=== PATIENT | female | born 1965 | race Caucasian/White ===

== ENCOUNTER → 2016-11-11 | Outpatient (CLI) | payer BC ==
[2016-11-11 16:43] LABS: Basophils % (A) 1 %; CH 28.9; CHCM 32.6; Eosinophils # (A) 0.3 k/uL (0-0.7); Eosinophils % (A) 3 %; HCT 41.9 % (34.0-46.0); HDW 2.26; HGB 13.2 gm/dL (11.4-16.0); Luc # (Auto) 0.27; Luc % (Auto) 3; Lymphocytes # (A) 3.4 k/uL (1.0-4.8); Lymphocytes % (A) 37 %; MCH 28.1 pg (25.0-35.0); MCHC 31.5 g/dL (31.0-37.0); MCV 89.1 fL (80.0-100.0); Mean Platelet Volume 6.8; Monocytes # (A) 0.7 k/uL (0-1.0); Monocytes % (A) 8 %; Neutrophils # (A) 4.5 k/uL (1.3-7.7); Neutrophils % (A) 49 %; RDW 12.7 % (11.5-15.5); WBC 9.2 k/uL (3.8-10.6); WBC (Perox) 9.39
[2016-11-11 16:45] LABS: Appearance,Urine Clear (Clear); Bacteria,Urine Few /hpf; Bilirubin,Urine Negative (Negative); Glucose,Urine (UA) Negative (Negative); Ketones,Urine Negative (Negative); Leukocyte Esterase,Urine Negative (Negative); Mucus,Urine Rare /hpf; Nitrite,Urine Negative (Negative); PH, Urine 5.5 (5.0-8.0); Particle Count 1041; Protein,Urine Negative (Negative); RBC,Urine 12 /hpf (0-5); Specific Gravity,Urine 1.017 (1.001-1.035); Squamous Epithelial Cell,Urine <1 /hpf (0-4); UA Billing (MACRO vs. MICRO) MICRO; Urobilinogen,Urine <2.0 mg/dL (<2.0); WBC,Urine <1 /hpf (0-5)
[2016-11-11 16:52] LABS: ALT 40 U/L (9-52); AST 23 U/L (14-36); Alkaline Phosphatase 73 U/L (38-126); Anion Gap 11 mmol/L; Blood Urea Nitrogen 18 mg/dL (7-17); Calcium 9.4 mg/dL (8.4-10.2); Carbon Dioxide 28 mmol/L (22-30); Chloride 102 mmol/L (98-107); Glucose 95 mg/dL (74-99); Non-African American GFR(MDRD) >60 (>60 ml/min/1.73 sqM); Potassium 4.4 mmol/L (3.5-5.1); Sodium 141 mmol/L (137-145); Total Bilirubin 0.4 mg/dL (0.2-1.3); Total Protein 7.8 g/dL (6.3-8.2)
[2016-11-11 16:54] LABS: Partial Thromboplastin Time 28.3 sec (22.0-30.0); Prothrombin Time 9.8 sec (9.0-12.0)
== END | disposition home or self-care (01) ==
LOC: LABPAT 15:44
PROVIDERS: ATTEND Orthopaedic Surgery
DX: Z01.812 Encounter for preprocedural laboratory examination (principal)
CPT/HCPCS: 80053; 81001; 85025; 85610; 85730; 87070

== ENCOUNTER 2016-11-29 06:33 | Inpatient (IN) | payer BC ==
[2016-11-16 12:22] VITALS: BMI 40.5
[~2016-11-29 06:33] MED LIST: ACETAMINOPHEN TAB 500 MG TAB PO ONE; LIDOCAINE 1% 20 ML VIAL (10MG/ML) FOR IV START INTRADERMA PRN; MELOXICAM 7.5 MG TAB PO ONE; MIDAZOLAM 2 MG/2 ML VIAL IV PRN; ONDANSETRON 4 MG/2 ML VIAL IVP ONE; SCOPOLAMINE 1.5MG/72HR PATCH TRANSDERM ONE; TRANEXAMIC ACID 1,000 MG in SODIUM CHLORIDE 0.9% 100 ML IVPB ONE; ceFAZolin 2 GM in SODIUM CHLORIDE 0.9% 100 ML IVPB ONE; fentaNYL (PF) 50 MCG/ML 2 ML AMP IV PRN; fentaNYL (PF) 50 MCG/ML 20 ML VIAL IVP PRN
[2016-11-29 06:51] VITALS: RESP 16
[2016-11-29] MEDS: LACTATED RINGERS 1,000 ML IV SCH ×7 (06:55→23:26)
[2016-11-29] MEDS ORDERED: LIDOCAINE 1% 20 ML VIAL (10MG/ML) FOR IV START INTRADERMA ONE (06:56)
[2016-11-29] MEDS: DEXAMETHASONE SOD PHOSPHATE 10 MG/ML 1 ML VIAL IV ONE ×2 (06:56→12:15)
[2016-11-29] MEDS ORDERED: fentaNYL (PF) 50 MCG/ML 2 ML AMP IV ONE (07:59)
[2016-11-29] MEDS ORDERED: ROPIVACAINE 1,100 MG, SODIUM CHLORIDE 0.9% 330 ML MISCELLANE PRN ×2 (08:02)
--- NOTE | 2016-11-29 08:04 | P.ONQ ---
Anesthesiology Proc Note - PNB - Peripheral Nerve Block Performed Right Adductor Canal Infusion Time Out Performed: Yes Procedure Start Time: :25 Procedure Stop Time: :40 Indication: Acute Post-Operative Pain, Analgesia, Requested by physician Sedation Type: Sedate with meaningful contact maintained Preparation: Sterile Dressing Position: Supine Catheter: Indwelling Needle Types: On-Q Needle Size: 100mm (4") Needle Gauge: 18 Technique: Ultrasound Injectate: 0.5% Ropivacaine (see comment for volume) Blood Aspirated: No Pain Paresthesia on Injection Noted: No Resistance on Injection: Normal Events: Uneventful and Well Tolerated
[2016-11-29] MEDS ORDERED: MIDAZOLAM 2 MG/2 ML VIAL ONE (08:12)
[2016-11-29] MEDS ORDERED: PROPOFOL 10 MG/ML 20 ML VIAL IV ONE (08:12)
[2016-11-29] MEDS ORDERED: fentaNYL (PF) 50 MCG/ML 2 ML AMP ONE (08:12)
[2016-11-29] MEDS: ROPIVACAINE 246.25 MG, EPINEPHrine 0.5 MG, KETOROLAC 30 MG, cloNIDine HCL/PF 80 MCG, WA... MISCELLANE ONE ×10 (08:45→09:45)
[2016-11-29] MEDS ORDERED: LACTATED RINGERS 1,000 ML IV ONE (08:55)
--- NOTE | 2016-11-29 10:14 | P.OP ---
Date of Procedure: 11/29/16 Procedure(s) Performed: PREOPERATIVE DIAGNOSIS: Right knee severe osteoarthritis with genu varum POSTOPERATIVE DIAGNOSIS: Right knee severe osteoarthritis with genu varum OPERATION: Right knee cemented total replacement arthroplasty. ANESTHESIA: Spinal ESTIMATED BLOOD LOSS: 100 ml. DIABETOLOGIST: Nena Ortiz PA-C (assistance with: patient positioning, retraction, exposure, hemostasis, leg positioning, implantation, irrigation, closure, dressing) COMPLICATIONS: None apparent. COMPONENTS IMPLANTED: Persona system from [employer] INDICATIONS: Mrs. Henry is a 51-year-old female with a history of bilateral knee osteoarthritis. The patient's right knee is end-stage, and conservative management has failed. The operation of knee replacement has been discussed at length in the office, as well as potential risks and complications. These are inclusive of, but not limited to: bleeding, infection, scarring, discomfort, blood vessel and nerve damage, need for further surgery, failure to relieve symptoms, persistence, recurrence, or worsening of problems, loosening, dislocation, wear, blood clot, pulmonary embolism, , gait dysfunction, stiffness, and other risks as discussed in the office. The patient elects to proceed and the consent form has been signed. PROCEDURE: The patient was taken to the operating room and positioned on the operating room table in the supine position. Anesthesia was initiated. Care was taken to make sure that all pressure points were adequately padded. The operative right lower extremity was prepped and draped in the usual aseptic fashion using ChloraPrep. Ioban drape was used for the case and the patient received intravenous antibiotics within one hour of the incision. A pneumotourniquet and leg faria were used for the case. The limb was exsanguinated with an Esmarch bandage and the tourniquet was inflated to 350 mmHg. Time-out was called confirming the patient's identity, side, procedure and administration of antibiotics. The incision was then created midline directly over the knee, carried down through skin and into the subcutaneous tissues and down to fascia. Full thickness subcutaneous medial flap was developed. Medial parapatellar arthrotomy was performed and the interior of the knee was inspected. There was end-stage osteoarthritis of the knee with a mild to moderate genu varum type deformity. The fat pad was excised and proximal medial release on the tibia was completed using meticulous dissection and a curved osteotome. The anterior cruciate ligament was taken down. Note was made of significant attrition of the anterior and significant degenerative appearance of the posterior cruciate ligaments. The exposure was excellent. The knee was flexed 90 degrees and the patella was everted. A spot was chosen on the femur approximately 1 cm anterior to the posterior cruciate ligament insertion and an intramedullary hole was created within the femur. The intramedullary guide was then set to 5 degrees of valgus. The distal cutting block was attached and pinned into position. An appropriate amount of distal femoral resection was set. The oscillating saw was then used to make the distal femoral cut. This cut was confirmed to be flat with the flat end of an osteotome. The retractors were placed around the tibia and the tibial surface was addressed. The angle and depth of resection was adjusted using an extramedullary cutting guide. The guide had a built-in 3 degree posterior slope cut. Once the cutting guide was adjusted appropriately and in line with the axis of the tibia and confirmed to be in good position in relation to the second metatarsal and transmalleolar axis, the tibial cut was then created with protection of the posterior neurovascular structures and the collateral ligaments. The tibial cut surface was removed and sized. Femoral sizing was then accomplished using anterior referencing. Care was taken to analyze the posterior condyles for signs of deficiency or severe wear, and adjustments to the guide were made, as appropriate. 3 degree external rotation pins were placed. The cutting jig for the femur was applied to these pins. The planned cuts were further analyzed prior to performing them with the oscillating saw. No femoral notching was produced. Bone fragments were removed and the cut surfaces were finished, as necessary, with a reciprocating saw. Spacer block technique was then used to confirm that the flexion and extension gaps were equal. Soft tissue releases and adjustment of the tibial and/or femoral cuts were made, as necessary, until the gaps were equal. This included release of the posterior cruciate ligament, which was tight in this patient and , if left unreleased, would have resulted in poor kinematics and possibly early loosening. The femur was then further finished for a posterior cruciate ligament substituting component. Patellar resurfacing was performed using a reamer. The size of the required patellar component was estimated and the patellar surface was then reamed down to a residual thickness which would recreate the aniak thickness with the component. The placement of the patellar component was influenced by the degree of patellar subluxation, if any, noted on the preoperative x-rays. Prior to placing trial components, anesthetic solution consisting of ropivicaine with epinephrine, ketorolac, and clonidine was injected carefully and methodically in a grid pattern using aspiration technique into the soft tissue around the knee circumferentially, starting with the deeper tissues first and progressing to fascia, and then finally the skin/subcutaneous tissue. Particular care was taken when injecting the posterior capsule. The trial components were inserted. The tibial tray was allowed to self center and the patella was noted to track very well. The position of the tibial component was marked and the tibia was then finished for a stemmed tibial component. Cement was mixed on the back table and applied to the final components. Trial components were removed and the cut surfaces of the bone were pulse lavaged thoroughly and dried. Cement was then applied to the tibial surface and pressurized into the surface using finger pressurization technique. The tibial component was then applied and excess cement was removed after it was impacted securely and noted to be flush with the cut surface. In similar fashion, the cement was applied to the cut femoral surface, pressurized in using finger pressurization and the component was impacted into place. Excess cement was removed. The polyethylene spacer was then implanted and locked into position. The patellar component was then applied in similar technique and a patellar clamp was used to hold the patella in place as the cement hardened. Once the cement had fully hardened, the knee was reinspected. Any other cement extrusion was removed and final kinematic testing showed range of motion from 0 to 130 degrees with excellent stability, both medially and laterally and appropriate alignment of the leg. Patellar tracking was excellent. The knee was then thoroughly pulse lavaged with normal saline. The tourniquet was deflated and hemostasis was obtained with electrocautery and IV tranexamic acid, 1 g given at the start of the operation and 1 g at the start of closure. Closure was with #2 Ethibond in the fascia/capsule and supplemented with #2 Quill, 2-0 Vicryl suture was used for the subcutaneous tissues and 3-0 Quill for the skin. Dermabond/Steri-Strips were then applied. A lightly compressive dressing was applied using Webril and an Chris wrap. The patient was then transferred to stretcher and taken to the recovery room in stable condition. Sponge and needle counts were correct.
[2016-11-29] MEDS ORDERED: TEMAZEPAM 15 MG CAP PO PRN (10:24)
[2016-11-29] MEDS ORDERED: BISACODYL 10 MG SUPP RECTAL PRN (10:24)
[2016-11-29] MEDS ORDERED: NALOXONE 0.4 MG/ML 1 ML VIAL IV PRN (10:24)
[2016-11-29] MEDS ORDERED: HYDROcodone/APAP 5-325MG 1 EACH TAB PO PRN (10:24)
[2016-11-29] MEDS ORDERED: MAGNESIUM HYDROXIDE 2,400 MG/10 ML CUP PO PRN (10:24)
[2016-11-29] MEDS ORDERED: HYDROmorphone 1 MG/ML 1 ML SYRINGE IVP PRN ×3 (10:24)
[2016-11-29] MEDS ORDERED: ONDANSETRON 4 MG/2 ML VIAL IVP PRN (10:24)
[2016-11-29] MEDS ORDERED: NA PHOS,M-B/NA PHOS,DI-BA 133 ML ENEMA RECTAL PRN (10:24)
[2016-11-29] MEDS ORDERED: ACETAMINOPHEN TAB 325 MG TAB PO PRN (10:24)
--- NOTE | 2016-11-29 11:08 | XR ---
EXAMINATION TYPE: XR knee limited RT DATE OF EXAM: 11/29/2016 10:45 AM COMPARISON: NONE HISTORY: Post op FINDINGS: 2 views submitted. There is a prosthetic knee in near anatomic alignment. There is soft tissue beth a and emphysema. IMPRESSION: 1. Postoperative change. Appears in near-anatomic alignment
--- NOTE | 2016-11-29 14:05 | P.CONS ---
History of Present Illness - Reason for Consult Consult date: 11/29/16 Medical management Requesting physician: Rios Jordan - Chief Complaint Right knee osteoarthritis - History of Present Illness This is a 51-year-old female with no significant past medical history other than severe os arthritis of the right knee that failed outpatient management that was admitted to the hospital for elective total right knee arthroplasty. Patient is postoperative day #0. She tolerated the surgery well. She is awake and alert and does not have any specific concerns or complaints. Her pain is well-controlled. I was asked to see her for medical management. Estimated blood loss 100 mL. Review of Systems Review of system: 14 points review of systems were obtained and were negative except to what were mentioned in the HPI. Past Medical History Past Medical History: GERD/Reflux, Osteoarthritis (OA) Additional Past Medical History / Comment(s): HX OF HEMORROIDS, HX OF POLYPS History of Any Multi-Drug Resistant Organisms: None Reported Past Surgical History: Appendectomy, Section, Hysterectomy, Orthopedic Surgery, Tonsillectomy Additional Past Surgical History / Comment(s): MULT KNEE SCOPE, CARPAL TUNNEL STEPHANIE, LASIK. BILAT BUNIONS REMOVED FROM LITTLE TOES. COLONOSCOPY/EGD Past Anesthesia/Blood Transfusion Reactions: Motion Sickness Past Psychological History: No Psychological Hx Reported Smoking Status: Never smoker Past Alcohol Use History: Occasional Past Drug Use History: None Reported - Past Family History Mother Family Medical History: Deep Vein Thrombosis (DVT) Brother(s) Family Medical History: Blood Disorder Additional Family Medical History / Comment(s): HEMOPHELIA Medications and Allergies Home Medications Medication Instructions Recorded Confirmed Type Ibuprofen [Motrin] 800 mg PO Q8H PRN 09/08/16 11/29/16 History Omeprazole 20 mg PO DAILY 09/08/16 11/29/16 History Allergies Allergy/AdvReac Type Severity Reaction Status Date / Time morphine AdvReac Nausea & Verified 11/29/16 06:47 Vomiting Physical Exam Vitals: Vital Signs Temp Pulse Resp BP Pulse Ox 11/29/16 11:25 71 16 147/71 93 L 11/29/16 11:05 77 16 148/71 93 L 11/29/16 10:50 78 16 143/70 94 L 11/29/16 10:35 82 16 144/71 94 L 11/29/16 10:20 97.2 F L 84 16 133/63 96 11/29/16 06:40 97.8 F 82 16 198/85 96 Intake and Output 11/28/16 11/29/16 11/29/16 22:59 06:59 14:59 Intake Total 600 900 Output Total 700 Balance 600 200 Intake: IV 600 900 Output: Urine 600 Estimated Blood Loss 100 Other: Weight 117.48 kg Patient Weight 11/30/16 06:59 Weight 117.48 kg General: The patient is awake and alert, in no distress Eye: there is normal conjunctiva bilaterally. Neck: The neck is supple, there is no JVD. Cardiovascular: Normal S1-S2, no S3-S4, no murmurs. Respiratory: Lungs clear to auscultation bilaterally Gastrointestinal: Abdomen is soft, nontender Musculoskeletal: There is no pedal edema. Neurological:. Speech is normal. Skin: Skin is warm and dry Assessment and Plan Plan: 1. Postoperative day #1 status post total right knee arthroplasty 2. DVT prophylaxis with Coumadin per orthopedic protocol 3. Physical debility: Awaiting PT/OT evaluation 4. GERD Today, I reviewed her medication list and lab work results. Continue current regimen. Thank you very much for the consultation. I will continue to follow up on the patient closely.
[2016-11-29] MEDS ORDERED: WARFARIN 5 MG TAB PO ONE (18:00)
[2016-11-29] MEDS: ceFAZolin 2 GM in SODIUM CHLORIDE 0.9% 100 ML IVPB SCH ×2 (18:20→23:25)
[2016-11-29] MEDS: HYDROcodone/APAP 5-325MG 1 EACH TAB PO PRN (19:47)
[2016-11-29] MEDS: hydrOXYzine PAMOATE 25 MG CAP PO PRN (19:48)
[2016-11-29] MEDS ORDERED: SENNOSIDES-DOCUSATE SODIUM 1 EACH TAB PO SCH (21:00)
[2016-11-30] MEDS: HYDROcodone/APAP 5-325MG 1 EACH TAB PO PRN ×3 (01:35→13:30)
[2016-11-30] MEDS: hydrOXYzine PAMOATE 25 MG CAP PO PRN ×3 (01:35→13:31)
[2016-11-30 08:43] LABS: Basophils # (A) 0.1 k/uL (0-0.2); Basophils % (A) 0 %; CH 29.3; CHCM 32.4; Eosinophils # (A) 0.1 k/uL (0-0.7); Eosinophils % (A) 1 %; HCT 34.2 % (34.0-46.0); HDW 2.25; HGB 10.7 gm/dL (11.4-16.0); Luc % (Auto) 2; Lymphocytes # (A) 3.3 k/uL (1.0-4.8); Lymphocytes % (A) 30 %; MCH 28.3 pg (25.0-35.0); MCHC 31.2 g/dL (31.0-37.0); MCV 90.8 fL (80.0-100.0); Mean Platelet Volume 7.9; Monocytes # (A) 0.8 k/uL (0-1.0); Monocytes % (A) 7 %; Neutrophils # (A) 6.7 k/uL (1.3-7.7); Neutrophils % (A) 61 %; RBC 3.77 m/uL (3.80-5.40); WBC 11.1 k/uL (3.8-10.6); WBC (Perox) 11.51
[2016-11-30 08:49] LABS: INR 1.2 (<1.1)
[2016-11-30] MEDS ORDERED: MELOXICAM 7.5 MG TAB PO SCH (09:00)
--- NOTE | 2016-11-30 09:57 | P.DS ---
Providers Date of admission: 11/29/16 06:33 Expected date of discharge: 11/30/16 Attending physician: Rios Jordan Consults: 11/29/16 10:24 Consult Physician Routine Consulting Provider: Susannah Romero Consult Reason/Comments: medical management Do you want consulting provider notified?: Yes Primary care physician: Kellee Ocampo [facility] Course: Patient was admitted to the OR yesterday, 11/29/2016 to undergo right total knee arthroplasty. She had failed conservative measures as an outpatient and desired to proceed with elective surgery. Informed consent was given. She tolerated the procedure well without complication. Her postoperative hospital course has remained without complication. On day of discharge she is afebrile, vital signs stable, wound is benign, neurovascular status is intact, labs within acceptable ranges, has no calf tenderness, denies new complaints, denies abdominal pain, voiding without difficulty and has had positive flatus. Review of systems is negative for fever, chills, chest pain, shortness of breath, nausea, vomiting, headaches, dizziness, rashes, bleeding, abdominal pain, slurred speech or other. Procedures: Right total knee arthroplasty Patient Condition at Discharge: Good Plan - Discharge Summary New Discharge Prescriptions: HYDROcodone/APAP 5-325MG [Allston 5] 1 - 2 each PO Q4-6H PRN #90 tab PRN Reason: Pain Sennosides-Docusate Sodium [Senokot-S] 1 tab PO BID #60 tablet Warfarin [Coumadin] 2.5 mg PO DAILY #1 tab Discharge Medication List Ibuprofen [Motrin] 800 mg PO Q8H PRN 09/08/16 [History] Omeprazole 20 mg PO DAILY 09/08/16 [History] HYDROcodone/APAP 5-325MG [Allston 5] 1 - 2 each PO Q4-6H PRN #90 tab 11/29/16 [Rx] Sennosides-Docusate Sodium [Senokot-S] 1 tab PO BID #60 tablet 11/29/16 [Rx] Warfarin [Coumadin] 2.5 mg PO DAILY #1 tab 11/29/16 [Rx] Follow up Appointment(s)/Referral(s): Nena Ortiz, PAC [PHYSICIAN [employer]ILITATOR] - 2 Weeks Ambulatory/Diagnostic Orders: Prothrombin Time INR [LAB.AMB] Location: Determined By Patient Activity/Diet/Wound Care/Special Instructions: May bear wt as tolerated w walker. May shower if no drainage from incision after 48h. CPM 5-6h daily. Discharge Disposition: HOME WITH HOME HEALTH SERVICES
--- NOTE | 2016-11-30 10:28 | P.PN ---
Progress Note - Text 0858. Anesthesia POD 1. Patient is status post right TKR under spinal anesthesia with a right adductor canal catheter placed for postoperative pain relief. With 0.2% ropivacaine running at 8 mL per hour the patient's visual analog score at rest is 3. Catheter site is clean dry and intact.
[2016-11-30] MEDS ORDERED: MULTIVITAMINS, THERA 1 EACH TAB PO SCH (12:00)
[2016-11-30 14:28] VITALS: BP 134/70; PULSE 81; TEMP 99.5
--- NOTE | 2016-11-30 16:21 | P.PN ---
Subjective Patient is doing well today. No events overnight. She is looking be discharged home. Objective - Vital Signs Vital signs: Vital Signs Temp 99.5 F 11/30/16 14:27 Pulse 81 11/30/16 14:27 Resp 16 11/30/16 14:27 BP 134/70 11/30/16 14:27 Pulse Ox 95 11/30/16 14:27 Intake & Output 11/29/16 11/30/16 11/30/16 18:59 06:59 18:59 Intake Total 1622 480 Output Total 1999 550 Balance -378 -550 480 Weight 117.48 kg Intake: IV 900 Oral 722 480 Output: Urine 1900 550 Estimated Blood Loss 100 Other: Voiding Method Toilet # Voids 1 - Exam General: The patient is awake and alert, in no distress Eye: there is normal conjunctiva bilaterally. Neck: The neck is supple, there is no JVD. Cardiovascular: Normal S1-S2, no S3-S4, no murmurs. Respiratory: Lungs clear to auscultation bilaterally Gastrointestinal: Abdomen is soft, nontender Musculoskeletal: There is no pedal edema. Neurological:. Speech is normal. Skin: Skin is warm and dry - Labs CBC & Chem 7: 11/30/16 08:06 Labs: Abnormal Lab Results - Last 24 Hours (Table) 11/30/16 Range/Units 08:06 WBC 11.1 H (3.8-10.6) k/uL RBC 3.77 L (3.80-5.40) m/uL Hgb 10.7 L (11.4-16.0) gm/dL Assessment and Plan Plan: 1. Postoperative day #2 status post total right knee arthroplasty 2. DVT prophylaxis with Coumadin per orthopedic protocol 3. Physical debility: Continue PT at home 4. GERD Patient is medically cleared for discharge. I reviewed her medication list.
[2016-11-30] MEDS ORDERED: WARFARIN 7.5 MG TAB PO ONE (18:00)
== END 2016-11-30 17:12 | disposition home health service (06) | DRG 470 ==
LOC: 2ORMAIN 06:33 → 3SUR 10:28
PROVIDERS: ADMIT Orthopaedic Surgery; ATTEND Orthopaedic Surgery
PROC: 0SRC0J9 Replacement of Right Knee Joint with Synthetic Substitute, Cemented, Open Approach (ICD-10-PCS; principal; 2016-11-29 08:00)
DX: M17.0 Bilateral primary osteoarthritis of knee (principal); K21.9 Gastro-esophageal reflux disease without esophagitis; Z88.5 Allergy status to narcotic agent; Z79.1 Long term (current) use of non-steroidal anti-inflammatories (NSAID); Z79.899 Other long term (current) drug therapy; M21.161 Varus deformity, not elsewhere classified, right knee
CPT/HCPCS: 85025; 85610; 88300

== ENCOUNTER 2017-04-28 18:40 | Emergency (ER) | payer BC ==
[2017-04-28] MEDS ORDERED: EPINEPHrine 1 MG/ML 1 ML AMP SQ ONE (18:48)
[2017-04-28] MEDS ORDERED: FAMOTIDINE 20 MG/2 ML VIAL IV STA (18:51)
[2017-04-28] MEDS ORDERED: methylPREDNISolone SOD SUCCI 125 MG/2 ML VIAL IM ONE (18:51)
[2017-04-28] MEDS ORDERED: LORazepam 2 MG/ML SYRINGE IV STA ×2 (18:52→19:03)
[2017-04-28] MEDS ORDERED: diphenhydrAMINE 50 MG/ML 1 ML VIAL IVP STA (18:52)
[2017-04-28] MEDS ORDERED: ALBUTEROL NEBULIZED 2.5 MG/3 ML INHALATION STA (18:56)
--- NOTE | 2017-04-28 20:31 | ED ---
Allergic Reaction HPI - General Chief complaint: Allergic Reaction Stated complaint: bee sting Time Seen by Provider: 04/28/17 18:47 Source: patient, RN notes reviewed, old records reviewed Mode of arrival: wheelchair Limitations: no limitations - History of Present Illness Initial Comments: 51-year-old female since emergency Department chief complaint of an acute ALLERGIC reaction to a bee sting. Patient warts that she thinks that to bee stings occurred on the back of her neck approximately 1:30 minutes prior to arrival. Patient reports she started to break out in hives. Patient reports that upon arriving to emergency department she felt very short of breath and felt like her throat was closing. Patient states that she's had no previous ALLERGIC reactions. She didn't have an EpiPen on her. She did take 100 mg of Benadryl before arriving to the emergency department. Patient states that she has a family history of being ALLERGIC to bees.Patient denies any recent fever, chills, back pain, abdominal pain, nausea vomiting, numbness or tingling, dysuria or hematuria, constipation or diarrhea, headaches or visual changes, or any other current symptoms - Related Data Home Medications Medication Instructions Recorded Confirmed Omeprazole 20 mg PO DAILY PRN 09/08/16 04/28/17 Previous Rx's Medication Instructions Recorded EPINEPHrine (Auto Inject) [Epipen] 0.3 mg IM ONCE PRN #2 syringe 04/28/17 Famotidine [Pepcid] 20 mg PO BID #20 tablet 04/28/17 diphenhydrAMINE [Benadryl] 25 mg PO QID PRN #20 capsule 04/28/17 predniSONE 20 mg PO BID #10 tab 04/28/17 Allergies Allergy/AdvReac Type Severity Reaction Status Date / Time bee venom protein (honey bee) Allergy Anaphylaxis Verified 04/28/17 19:27 morphine AdvReac Nausea & Verified 04/28/17 19:27 Vomiting Review of Systems ROS Statement: Those systems with pertinent positive or pertinent negative responses have been documented in the HPI. ROS Other: All systems not noted in ROS Statement are negative. Past Medical History Past Medical History: GERD/Reflux, Osteoarthritis (OA) Additional Past Medical History / Comment(s): HX OF HEMORROIDS, HX OF POLYPS History of Any Multi-Drug Resistant Organisms: None Reported Past Surgical History: Appendectomy, Section, Hysterectomy, Orthopedic Surgery, Tonsillectomy Additional Past Surgical History / Comment(s): MULT KNEE SCOPE, CARPAL TUNNEL STEPHANIE, LASIK. BILAT BUNIONS REMOVED FROM LITTLE TOES. COLONOSCOPY/EGD Past Anesthesia/Blood Transfusion Reactions: Motion Sickness Past Psychological History: No Psychological Hx Reported Smoking Status: Never smoker Past Alcohol Use History: Occasional Past Drug Use History: None Reported - Past Family History Mother Family Medical History: Deep Vein Thrombosis (DVT) Brother(s) Family Medical History: Blood Disorder Additional Family Medical History / Comment(s): HEMOPHELIA General Exam - General Exam Comments Initial Comments: patient is a 51-year-old female. Patient is flushed. Limitations: no limitations General appearance: alert, in no apparent distress Head exam: Present: atraumatic, normocephalic, normal inspection Eye exam: Present: normal appearance, PERRL, EOMI. Absent: scleral icterus, conjunctival injection, periorbital swelling ENT exam: Present: normal exam, mucous membranes moist Neck exam: Present: normal inspection. Absent: tenderness, meningismus, lymphadenopathy Respiratory exam: Present: normal lung sounds bilaterally, respiratory distress ( usually pierced acute neck. Patient was also hyperventilating.). Absent : wheezes, rales, rhonchi, stridor Cardiovascular Exam: Present: regular rate, normal rhythm, normal heart sounds. Absent: systolic murmur, diastolic murmur, rubs, gallop, clicks GI/Abdominal exam: Present: soft, normal bowel sounds. Absent: distended, tenderness, guarding, rebound, rigid Extremities exam: Present: normal inspection, full ROM, normal capillary refill. Absent: tenderness, pedal edema, joint swelling, calf tenderness Back exam: Present: normal inspection Neurological exam: Present: alert, oriented X3, CN II-XII intact Psychiatric exam: Present: normal affect, normal mood Skin exam: Present: warm, dry, intact, normal color, erythema (patient has erythematous urticaria over arms, legs, chest and back.), urticaria. Absent: rash Course Vital Signs 04/28/17 04/28/17 04/28/17 18:45 18:55 18:59 Temperature 97.9 F Pulse Rate 111 H 104 H 100 Respiratory 24 26 H Rate Blood Pressure 214/141 208/110 O2 Sat by Pulse 98 99 Oximetry 07/04/0904/28/17 04/28/17 19:05 19:10 19:17 Temperature Pulse Rate 97 95 100 Respiratory 24 Rate Blood Pressure 207/102 O2 Sat by Pulse 100 99 Oximetry 04/28/17 19:21 Temperature Pulse Rate 96 Respiratory 20 Rate Blood Pressure 197/91 O2 Sat by Pulse 97 Oximetry Medical Decision Making - Medical Decision Making patient. Female chief complaint of ventricular tract bee stings. Patient was seen in emergency department to get thinking and in moderate distress upon arrival. Patient had an IV started. IV Solu-Medrol, Pepcid, Benadryl was given. Also some 0.3 g of subcu epinephrine was given. Patient also started to have a panic attack during the episodes of shortness of breath and was given 1 mg of Ativan IV. Patient was also given a albuterol breathing treatment. She was reevaluated every 5 minutes and each time feeling more and more better. At 8:26 PM there is no evidence of erythema or urticaria at this time. Patient reports that she feels 100% better. Lungs are clear to auscultation this time. Patient will be discharged with a prescription for epinephrine pen, prednisone, Benadryl and Pepcid. Patient advised to follow-up with her primary care provider as well. Patient agrees to treatment plan will comply. Return parameters were discussed. 04/28/17 20:27 EKG shows normal sinus rhythm with sinus tachycardia 101 bpm. Verbal 122 ms. QRS duration 9086 ms. QT QTC 370/479 ms. No evidence of ST elevation or T-wave inversion. No evidence of atrial or ventricular arrhythmias. Disposition Clinical Impression: Anaphylactic reaction to bee sting Disposition: HOME SELF-CARE Condition: Good Instructions: Anaphylaxis (ED) Additional Instructions: Patient advised to follow-up with your primary care provider. Always carry an epinephrine pen at All times. Patient should complete steroid prescriptions as well as Pepcid and Benadryl for the next 4 days. Return to the emergency department if any alarming signs or symptoms occur. Prescriptions: diphenhydrAMINE [Benadryl] 25 mg PO QID PRN #20 capsule PRN Reason: itch EPINEPHrine (Auto Inject) [Epipen] 0.3 mg IM ONCE PRN #2 syringe PRN Reason: Anaphylaxis Famotidine [Pepcid] 20 mg PO BID #20 tablet predniSONE 20 mg PO BID #10 tab Referrals: Kellee Ocampo MD [Primary Care Provider] - 1-2 days Time of Disposition: 20:28
[2017-04-28 21:04] VITALS: BP 166/89; PULSE 74; RESP 18; TEMP 98.1
== END 2017-04-28 21:04 | disposition home or self-care (01) ==
LOC: EC 18:40
DX: T63.441A Toxic effect of venom of bees, accidental (unintentional), initial encounter (principal); T78.2XXA Anaphylactic shock, unspecified, initial encounter; X58.XXXA Exposure to other specified factors, initial encounter; Z79.899 Other long term (current) drug therapy; K21.9 Gastro-esophageal reflux disease without esophagitis; Z91.030 Bee allergy status; Z88.5 Allergy status to narcotic agent
CPT/HCPCS: 94640; 93005; 99285; 96374; 96375; 96376; 96372; J0171; J2060; J1200; J2930

== ENCOUNTER → 2017-07-01 | Outpatient (CLI) | payer BC ==
[2017-07-01 07:59] LABS: Prothrombin Time 10.3 sec (9.0-12.0)
[2017-07-01 08:04] LABS: Appearance,Urine Clear (Clear); Bilirubin,Urine Negative (Negative); Glucose,Urine (UA) Negative (Negative); Ketones,Urine Negative (Negative); Leukocyte Esterase,Urine Negative (Negative); Mucus,Urine Rare /hpf; Nitrite,Urine Negative (Negative); Particle Count 2011; Protein,Urine Negative (Negative); RBC,Urine 7 /hpf (0-5); Specific Gravity,Urine 1.014 (1.001-1.035); Squamous Epithelial Cell,Urine <1 /hpf (0-4); UA Billing (MACRO vs. MICRO) MICRO; Urobilinogen,Urine <2.0 mg/dL (<2.0)
[2017-07-01 08:21] LABS: Basophils # (A) 0.1 k/uL (0-0.2); Basophils % (A) 1 %; CH 28.9; CHCM 32.6; Eosinophils # (A) 0.3 k/uL (0-0.7); Eosinophils % (A) 4 %; HCT 44.2 % (34.0-46.0); HDW 2.24; HGB 14.6 gm/dL (11.4-16.0); Luc # (Auto) 0.24; Luc % (Auto) 3; Lymphocytes # (A) 2.8 k/uL (1.0-4.8); Lymphocytes % (A) 35 %; MCH 29.4 pg (25.0-35.0); MCV 89.1 fL (80.0-100.0); Mean Platelet Volume 7.2; Monocytes # (A) 0.6 k/uL (0-1.0); Monocytes % (A) 7 %; Neutrophils % (A) 50 %; RBC 4.96 m/uL (3.80-5.40); RDW 13.1 % (11.5-15.5); WBC (Perox) 7.31
[2017-07-01 08:33] LABS: ALT 41 U/L (9-52); AST 25 U/L (14-36); Alkaline Phosphatase 71 U/L (38-126); Anion Gap 9 mmol/L; Blood Urea Nitrogen 12 mg/dL (7-17); Calcium 9.3 mg/dL (8.4-10.2); Carbon Dioxide 30 mmol/L (22-30); Chloride 105 mmol/L (98-107); Glucose 94 mg/dL (74-99); Non-African American GFR(MDRD) >60 (>60 ml/min/1.73 sqM); Potassium 4.7 mmol/L (3.5-5.1); Sodium 144 mmol/L (137-145); Total Bilirubin 0.6 mg/dL (0.2-1.3); Total Protein 7.9 g/dL (6.3-8.2)
== END | disposition home or self-care (01) ==
LOC: LABPAT 07:20
PROVIDERS: ATTEND Orthopaedic Surgery
DX: Z01.810 Encounter for preprocedural cardiovascular examination (principal); Z01.812 Encounter for preprocedural laboratory examination
CPT/HCPCS: 80053; 81001; 85025; 85610; 85730; 87070

== ENCOUNTER → 2017-07-01 | Outpatient (CLI) | payer BC ==
[2017-07-01 09:51] LABS: Hemoglobin A1C 5.5 % (4.2-6.1)
== END | disposition home or self-care (01) ==
LOC: LABWHC1 07:17
PROVIDERS: ATTEND Family Medicine
DX: Z00.00 Encounter for general adult medical examination without abnormal findings (principal); E66.9 Obesity, unspecified; Z79.899 Other long term (current) drug therapy
CPT/HCPCS: 36415; 80061; 83036; 84443

== ENCOUNTER 2017-07-11 08:00 | Inpatient (IN) | payer BC ==
[2017-07-04 15:51] VITALS: BMI 40.7
[~2017-07-11 08:00] MED LIST changes: +DEXAMETHASONE SOD PHOSPHATE 10 MG/ML 1 ML VIAL IV ONE; +HYDROmorphone 1 MG/ML 1 ML SYRINGE IVP PRN; +LACTATED RINGERS 1,000 ML IV SCH; -LIDOCAINE 1% 20 ML VIAL (10MG/ML) FOR IV START INTRADERMA PRN; -MIDAZOLAM 2 MG/2 ML VIAL IV PRN; -SCOPOLAMINE 1.5MG/72HR PATCH TRANSDERM ONE; -fentaNYL (PF) 50 MCG/ML 2 ML AMP IV PRN; -fentaNYL (PF) 50 MCG/ML 20 ML VIAL IVP PRN
[2017-07-11] MEDS ORDERED: LIDOCAINE 1% 20 ML VIAL (10MG/ML) FOR IV START INTRADERMA ONE (08:55)
[2017-07-11] MEDS ORDERED: PROPOFOL 10 MG/ML 20 ML VIAL IV ONE (10:25)
[2017-07-11] MEDS ORDERED: fentaNYL (PF) 50 MCG/ML 2 ML AMP ONE (10:25)
[2017-07-11] MEDS ORDERED: SODIUM CHLORIDE 0.9% 100 ML BAG ONE (10:25)
[2017-07-11] MEDS ORDERED: MIDAZOLAM 2 MG/2 ML VIAL ONE (10:25)
[2017-07-11] MEDS ORDERED: TRANEXAMIC ACID 1,000 MG/10 ML VIAL ONE (10:25)
[2017-07-11] MEDS: ROPIVACAINE 246.25 MG, EPINEPHrine 0.5 MG, KETOROLAC 30 MG, cloNIDine HCL/PF 80 MCG, WA... MISCELLANE ONE ×10 (11:05→11:52)
[2017-07-11] MEDS ORDERED: ceFAZolin 3,000 MG in SODIUM CHLORIDE 0.9% IRRIGATIO 3,000 ML IRRIGATION ONE (11:06)
[2017-07-11] MEDS ORDERED: ACETAMINOPHEN TAB 325 MG TAB PO PRN (13:04)
[2017-07-11] MEDS ORDERED: HYDROcodone/APAP 5-325MG 1 EACH TAB PO PRN (13:04)
[2017-07-11] MEDS ORDERED: MAGNESIUM HYDROXIDE 2,400 MG/10 ML CUP PO PRN (13:04)
[2017-07-11] MEDS ORDERED: NALOXONE 0.4 MG/ML 1 ML VIAL IV PRN (13:04)
[2017-07-11] MEDS ORDERED: BISACODYL 10 MG SUPP RECTAL PRN (13:04)
[2017-07-11] MEDS ORDERED: HYDROmorphone 1 MG/ML 1 ML SYRINGE IVP PRN ×3 (13:04)
[2017-07-11] MEDS ORDERED: ONDANSETRON 4 MG/2 ML VIAL IVP PRN (13:04)
[2017-07-11] MEDS ORDERED: NA PHOS,M-B/NA PHOS,DI-BA 133 ML ENEMA RECTAL PRN (13:04)
--- NOTE | 2017-07-11 13:39 | XR ---
EXAMINATION TYPE: XR knee limited LT DATE OF EXAM: 07/11/2017 COMPARISON: NONE HISTORY: 51-year-old female evaluation for postoperative abnormality and alignment TECHNIQUE: 2 views FINDINGS: Images show placement of left total knee arthroplasty. Both distal femoral and proximal tibial compon ents of the prosthesis appear well seated without periprosthetic fracture. Alignment is grossly anato yogesh. Anterior soft tissue swelling with soft tissue gas as well as intra-articular air compatible wit h recent operation. IMPRESSION: Uncomplicated postoperative appearance left total knee arthroplasty.
--- NOTE | 2017-07-11 15:09 | P.CONS ---
History of Present Illness - Reason for Consult Consult date: 07/11/17 Medical management Requesting physician: Rios Jordan - Chief Complaint Status post left total knee arthroplasty - History of Present Illness This is a 51-year-old female, patient of Dr. Snow. Patient has a known past medical history of GERD and osteoarthritis. She had a previous right total knee arthroplasty in November 2016. Patient underwent a left total knee arthroplasty today. She tolerated surgery well with no complications. She denies any fever, chills, sweats. Denies any nausea or vomiting. Denies any chest pain or shortness of breath. Denies any burning with urination. We have been consulted for medical management. Review of Systems Please refer to HPI otherwise unremarkable Past Medical History Past Medical History: GERD/Reflux, Osteoarthritis (OA) Additional Past Medical History / Comment(s): HX OF HEMORROIDS, HX OF POLYPS History of Any Multi-Drug Resistant Organisms: None Reported Past Surgical History: Appendectomy, Section, Hysterectomy, Joint Replacement, Orthopedic Surgery, Tonsillectomy Additional Past Surgical History / Comment(s): MULT KNEE SCOPE, BILAT CTR, LASIK. BILAT BUNIONS REMOVED FROM LITTLE TOES. COLONOSCOPY/EGD, RT TKA Past Anesthesia/Blood Transfusion Reactions: Motion Sickness Smoking Status: Never smoker - Past Family History Mother Family Medical History: Deep Vein Thrombosis (DVT) Brother(s) Family Medical History: Blood Disorder Additional Family Medical History / Comment(s): HEMOPHILIA-3 OF 4 BROTHERS Medications and Allergies Home Medications Medication Instructions Recorded Confirmed Type Omeprazole 20 mg PO DAILY 09/08/16 07/11/17 History EPINEPHrine (Auto Inject) [Epipen] 0.3 mg IM ONCE PRN #2 syringe 04/28/17 Rx HYDROcodone/APAP 5-325MG [[place] 1 - 2 each PO Q4-6H PRN #90 tab 07/11/17 Rx 5-325] Sennosides-Docusate Sodium 1 tab PO BID #60 tablet 07/11/17 Rx [Senokot-S] Warfarin [Coumadin] 2.5 mg PO DAILY 07/11/17 07/11/17 History Warfarin [Coumadin] 2.5 mg PO DAILY #1 tab 07/11/17 Rx Allergies Allergy/AdvReac Type Severity Reaction Status Date / Time bee venom protein (honey bee) Allergy Anaphylaxis Verified 07/11/17 13:35 morphine AdvReac Nausea & Verified 07/11/17 13:35 Vomiting Physical Exam Vitals: Vital Signs Temp Pulse Pulse Resp BP BP Pulse Ox 07/11/17 13:51 80 16 139/76 93 L 07/11/17 13:36 84 16 138/70 94 L 07/11/17 13:20 85 16 141/69 94 L 07/11/17 13:06 98.2 F 79 16 142/70 93 L 07/11/17 08:46 98.3 F 77 16 174/82 96 Intake and Output 07/11/17 07/11/17 07/11/17 06:59 14:59 22:59 Intake Total 700 Output Total 50 Balance 650 Intake: IV 700 Output: Estimated Blood Loss 50 Head normocephalic Neck supple Lungs clear to auscultation bilaterally no wheezing or crackles Heart regular rate and rhythm S1-S2, no rub or gallop Abdomen is soft nontender nondistended positive bowel sounds no hepatosplenomegaly Extremities no edema. Left knee is Chris wrapped. +2 dorsalis pedis pulse on the left. Patient is able to wiggle her toes still has some numbness in the toes. Neuro alert and orientated to 3 Assessment and Plan Plan: 1. Osteoarthritis of the left knee: Status post left total knee arthroplasty. Continue with current pain medications. Continue DVT prophylaxis with Coumadin and SCDs per protocol 2. History of GERD: Resume patient's omeprazole 3. History of osteoarthritis Thank you for this consultation. We will continue to follow along with you during patient's hospitalization. Time with Patient: Greater than 30 (Greater than 50% of the total time spent in counseling and coordination of care.I performed an examination of the patient and discussed their management with the physician Aircraft Avionics Technician. I have reviewed the Physician Aircraft Avionics Technician's notes and agree with the documented findings and plan of care)
[2017-07-11] MEDS ORDERED: WARFARIN 5 MG TAB PO ONE (18:00)
[2017-07-11] MEDS: ceFAZolin 2 GM in SODIUM CHLORIDE 0.9% 100 ML IVPB SCH ×2 (18:10→23:26)
[2017-07-11] MEDS: LACTATED RINGERS 1,000 ML IV SCH (18:10)
[2017-07-11] MEDS: HYDROcodone/APAP 5-325MG 1 EACH TAB PO PRN ×2 (18:14→23:29)
[2017-07-11] MEDS: hydrOXYzine PAMOATE 25 MG CAP PO PRN ×2 (18:15→23:29)
[2017-07-11] MEDS ORDERED: SENNOSIDES-DOCUSATE SODIUM 1 EACH TAB PO SCH (21:00)
[2017-07-12] MEDS: LACTATED RINGERS 1,000 ML IV SCH (00:45)
[2017-07-12] MEDS: HYDROcodone/APAP 5-325MG 1 EACH TAB PO PRN ×3 (05:47→17:29)
[2017-07-12] MEDS: hydrOXYzine PAMOATE 25 MG CAP PO PRN (05:48)
[2017-07-12 07:03] LABS: Basophils % (A) 0 %; CH 28.6; CHCM 32.3; Eosinophils # (A) 0.1 k/uL (0-0.7); Eosinophils % (A) 1 %; HDW 2.25; Luc # (Auto) 0.19; Luc % (Auto) 2; Lymphocytes # (A) 2.8 k/uL (1.0-4.8); Lymphocytes % (A) 23 %; MCH 29.6 pg (25.0-35.0); MCHC 33.3 g/dL (31.0-37.0); Mean Platelet Volume 7.1; Monocytes % (A) 8 %; Neutrophils # (A) 8.2 k/uL (1.3-7.7); Neutrophils % (A) 67 %; RBC 4.04 m/uL (3.80-5.40); RDW 12.9 % (11.5-15.5); WBC 12.3 k/uL (3.8-10.6); WBC (Perox) 12.85
[2017-07-12 07:10] LABS: INR 1.2 (<1.2); Prothrombin Time 11.8 sec (9.0-12.0)
[2017-07-12 07:12] LABS: ALT 32 U/L (9-52); AST 21 U/L (14-36); Alkaline Phosphatase 53 U/L (38-126); Anion Gap 8 mmol/L; Blood Urea Nitrogen 11 mg/dL (7-17); Calcium 8.5 mg/dL (8.4-10.2); Carbon Dioxide 24 mmol/L (22-30); Chloride 108 mmol/L (98-107); Glucose 91 mg/dL (74-99); Non-African American GFR(MDRD) >60 (>60 ml/min/1.73 sqM); Potassium 4.1 mmol/L (3.5-5.1); Sodium 140 mmol/L (137-145); Total Bilirubin 0.6 mg/dL (0.2-1.3); Total Protein 6.2 g/dL (6.3-8.2)
[2017-07-12] MEDS ORDERED: PANTOPRAZOLE 40 MG TABLET PO SCH (07:30)
[2017-07-12] MEDS ORDERED: MELOXICAM 7.5 MG TAB PO SCH (09:00)
--- NOTE | 2017-07-12 09:17 | P.DS ---
Providers Date of admission: 07/11/17 08:29 Expected date of discharge: 07/12/17 Attending physician: Rios Jordan Consults: 07/11/17 13:04 Consult Physician Routine Consulting Provider: Brit Richard Consult Reason/Comments: medical management Do you want consulting provider notified?: Yes Primary care physician: Kellee Ocampo - Discharge Diagnosis(es) (1) Primary osteoarthritis of left knee Current Visit: Yes Status: Acute (2) Status post left knee replacement Current Visit: Yes Status: Acute Hospital Course: This is a pleasant 51-year-old female last seen in our office with complaints of left knee pain. Patient has known history of degenerative arthritis of the left knee and presented to discuss options. After discussion and consideration , the patient elected to proceed with a left total knee arthroplasty. Patient was seen preoperatively, and medically cleared for surgery by Dr. Ocampo. Patient was admitted to [facility] underwent left total knee arthroplasty on 07/11/[address] Jordan. The procedure was performed without complications or sequelae. The patient is seen and evaluated at bedside today. Pain is well-controlled. Patient has no new complaints today and denies any fevers, chills, nausea, vomiting, or shortness of breath. Vital signs are stable. Dressing is clean dry and intact. Incision looks fine with no erythema or active drainage. Calf is soft and nontender. Patient has full foot and ankle motion without difficulty. Patient's left lower extremity is neurovascularly intact. The patient is orthopedically stable for discharge today. Pertinent Studies: Laboratory Tests 07/12/17 07/12/17 06:42 06:42 WBC 12.3 H RBC 4.04 Hgb 12.0 Hct 36.0 PT 11.8 INR 1.2 H Patient Condition at Discharge: Stable Plan - Discharge Summary New Discharge Prescriptions: New HYDROcodone/APAP 5-325MG [[place] 5-325] 1 - 2 each PO Q4-6H PRN #90 tab PRN Reason: Pain Sennosides-Docusate Sodium [Senokot-S] 1 tab PO BID #60 tablet Warfarin [Coumadin] 2.5 mg PO DAILY #1 tab No Action Omeprazole 20 mg PO DAILY EPINEPHrine (Auto Inject) [Epipen] 0.3 mg IM ONCE PRN #2 syringe PRN Reason: Anaphylaxis Warfarin [Coumadin] 2.5 mg PO DAILY Discharge Medication List Omeprazole 20 mg PO DAILY 09/08/16 [History] EPINEPHrine (Auto Inject) [Epipen] 0.3 mg IM ONCE PRN #2 syringe 04/28/17 [Rx] HYDROcodone/APAP 5-325MG [[place] 5-325] 1 - 2 each PO Q4-6H PRN #90 tab 07/11/17 [Rx] Sennosides-Docusate Sodium [Senokot-S] 1 tab PO BID #60 tablet 07/11/17 [Rx] Warfarin [Coumadin] 2.5 mg PO DAILY 07/11/17 [History] Warfarin [Coumadin] 2.5 mg PO DAILY #1 tab 07/11/17 [Rx] Follow up Appointment(s)/Referral(s): Nena Ortiz, PAC [PHYSICIAN CONSUMER INSIGHT ANALYST] - 2 Weeks Ambulatory/Diagnostic Orders: Continuous Passive Motion (CPM) Machine [DME.AMB1] Time Frame: 3 Weeks, Facility : [facility], Location: Case Management Prothrombin Time INR [LAB.AMB] Location: Determined By Patient Activity/Diet/Wound Care/Special Instructions: May bear wt as tolerated w walker. May shower if no drainage from incision. CPM 5-6 h daily. Discharge Disposition: HOME WITH HOME HEALTH SERVICES
[2017-07-12] MEDS ORDERED: MULTIVITAMINS, THERA 1 EACH TAB PO SCH (12:00)
[2017-07-12 15:08] VITALS: BP 132/68; PULSE 81; RESP 16; TEMP 97.2
--- NOTE | 2017-07-12 17:58 | P.PN ---
Subjective This is a 51-year-old female, patient of Dr. Snow. Patient has a known past medical history of GERD and osteoarthritis. She had a previous right total knee arthroplasty in November 2016. Patient underwent a left total knee arthroplasty today. She tolerated surgery well with no complications. She denies any fever, chills, sweats. Denies any nausea or vomiting. Denies any chest pain or shortness of breath. Denies any burning with urination. We have been consulted for medical management. on 07/12/2017 patient is alert and oriented in no distress pain is well controlled. no chest pain or shortness of breath, no GI or symptoms Objective - Vital Signs Vital signs: Vital Signs Temp 97.2 F L 07/12/17 15:00 Pulse 81 07/12/17 16:00 Resp 16 07/12/17 16:00 BP 132/68 07/12/17 15:00 Pulse Ox 97 07/12/17 06:55 Intake & Output 07/11/17 07/12/17 07/12/17 18:59 06:59 18:59 Intake Total 700 237 Output Total 450 800 Balance 250 -563 Weight 117.934 kg 117.934 kg Intake: IV 700 Oral 237 Output: Urine 400 800 Estimated Blood Loss 50 Other: Voiding Method Toilet Toilet - Exam HEENT head normocephalic and atraumatic Neck is supple no JVD no goiter no lymphadenopathy Chest is clear to auscultation no crackles no wheezing Cardiac exam reveals regular heart sounds no murmurs Abdomen is soft nontender no organomegaly Extremity exam reveals minimal edema no cyanosis or clubbing - Labs CBC & Chem 7: 07/12/17 06:42 07/12/17 06:42 Labs: Abnormal Lab Results - Last 24 Hours (Table) 07/12/17 07/12/17 07/12/17 Range/Units 06:42 06:42 06:42 WBC 12.3 H (3.8-10.6) k/uL Neutrophils # 8.2 H (1.3-7.7) k/uL INR 1.2 H (<1.2) Chloride 108 H (98-107) mmol/L Total Protein 6.2 L (6.3-8.2) g/dL Albumin 3.2 L (3.5-5.0) g/dL Assessment and Plan Plan: 1. Osteoarthritis of the left knee: Status post left total knee arthroplasty. Continue with current pain medications. Continue DVT prophylaxis with Coumadin and SCDs per protocol 2. History of GERD: Resume patient's omeprazole 3. History of osteoarthritis Patient was discharged home by orthopedic surgery Patient is medically stable there is no contraindication for discharge Follow-up with her primary care physician within 1-2 weeks
[2017-07-12] MEDS ORDERED: WARFARIN 7.5 MG TAB PO ONE (18:00)
--- NOTE | 2017-07-29 12:46 | P.OP ---
Date of Procedure: 07/11/17 Procedure(s) Performed: PREOPERATIVE DIAGNOSIS: Left knee severe osteoarthritis with genu varum POSTOPERATIVE DIAGNOSIS: Left knee severe osteoarthritis with genu varum OPERATION: Left knee cemented total replacement arthroplasty. ANESTHESIA: Spinal ESTIMATED BLOOD LOSS: 100 ml. MANAGER CONSTRUCTION: Nena Ortiz PA-C (assistance with: patient positioning, retraction, exposure, hemostasis, leg positioning, implantation, irrigation, closure, dressing) COMPLICATIONS: None apparent. COMPONENTS IMPLANTED: Persona system from [employer] INDICATIONS: Jane is a 51-year-old female with a history of knee osteoarthritis which has been resistant to conservative treatment. The operation of knee replacement has been discussed at length in the office, as well as potential risks and complications. These are inclusive of, but not limited to: bleeding, infection, scarring, discomfort, blood vessel and nerve damage, need for further surgery, failure to relieve symptoms, persistence, recurrence, or worsening of problems, loosening, dislocation, wear, blood clot, pulmonary embolism, , gait dysfunction, stiffness, and other risks as discussed in the office. The patient elects to proceed and the consent form has been signed. PROCEDURE: The patient was taken to the operating room and positioned on the operating room table in the supine position. Anesthesia was initiated. Care was taken to make sure that all pressure points were adequately padded. The operative lower extremity was prepped and draped in the usual aseptic fashion using DuraPrep. Ioban drape was used for the case and the patient received intravenous antibiotics within one hour of the incision. A pneumotourniquet and leg faria were used for the case. The limb was exsanguinated with an Esmarch bandage and the tourniquet was inflated to 350 mmHg. Time-out was called confirming the patient's identity, side, procedure and administration of antibiotics. The incision was then created midline directly over the knee, carried down through skin and into the subcutaneous tissues and down to fascia. Full thickness subcutaneous medial flap was developed. Medial parapatellar arthrotomy was performed and the interior of the knee was inspected. There was end-stage osteoarthritis of the knee with a mild to moderate genu varum type deformity. The fat pad was excised and proximal medial release on the tibia was completed using meticulous dissection and a curved osteotome. The anterior cruciate ligament was taken down. Note was made of significant attrition of the anterior and significant degenerative appearance of the posterior cruciate ligaments. The exposure was excellent. The knee was flexed 90 degrees and the patella was everted. A spot was chosen on the femur approximately 1 cm anterior to the posterior cruciate ligament insertion and an intramedullary hole was created within the femur. The intramedullary guide was then set to 5 degrees of valgus. The distal cutting block was attached and pinned into position. An appropriate amount of distal femoral resection was set. The oscillating saw was then used to make the distal femoral cut. This cut was confirmed to be flat with the flat end of an osteotome. The retractors were placed around the tibia and the tibial surface was addressed. The angle and depth of resection was adjusted using an extramedullary cutting guide. The guide had a built-in 3 degree posterior slope cut. Once the cutting guide was adjusted appropriately and in line with the axis of the tibia and confirmed to be in good position in relation to the second metatarsal and transmalleolar axis, the tibial cut was then created with protection of the posterior neurovascular structures and the collateral ligaments. The tibial cut surface was removed and sized. Femoral sizing was then accomplished using anterior referencing. Care was taken to analyze the posterior condyles for signs of deficiency or severe wear, and adjustments to the guide were made, as appropriate. 3 degree external rotation pins were placed. The cutting jig for the femur was applied to these pins. The planned cuts were further analyzed prior to performing them with the oscillating saw. No femoral notching was produced. Bone fragments were removed and the cut surfaces were finished, as necessary, with a reciprocating saw. Spacer block technique was then used to confirm that the flexion and extension gaps were equal. Soft tissue releases and adjustment of the tibial and/or femoral cuts were made, as necessary, until the gaps were equal. This included release of the posterior cruciate ligament, which was tight in this patient and , if left unreleased, would have resulted in poor kinematics and possibly early loosening. The femur was then further finished for a posterior cruciate ligament substituting component. Patellar resurfacing was performed using a reamer. The size of the required patellar component was estimated and the patellar surface was then reamed down to a residual thickness which would recreate the [place] thickness with the component. The placement of the patellar component was influenced by the degree of patellar subluxation, if any, noted on the preoperative x-rays. Prior to placing trial components, anesthetic solution consisting of ropivicaine with epinephrine, ketorolac, and clonidine was injected carefully and methodically in a grid pattern using aspiration technique into the soft tissue around the knee circumferentially, starting with the deeper tissues first and progressing to fascia, and then finally the skin/subcutaneous tissue. Particular care was taken when injecting the posterior capsule. The trial components were inserted. The tibial tray was allowed to self center and the patella was noted to track very well. The position of the tibial component was marked and the tibia was then finished for a stemmed tibial component. Cement was mixed on the back table and applied to the final components. Trial components were removed and the cut surfaces of the bone were pulse lavaged thoroughly and dried. Cement was then applied to the tibial surface and pressurized into the surface using finger pressurization technique. The tibial component was then applied and excess cement was removed after it was impacted securely and noted to be flush with the cut surface. In similar fashion, the cement was applied to the cut femoral surface, pressurized in using finger pressurization and the component was impacted into place. Excess cement was removed. The polyethylene spacer was then implanted and locked into position. The patellar component was then applied in similar technique and a patellar clamp was used to hold the patella in place as the cement hardened. Once the cement had fully hardened, the knee was reinspected. Any other cement extrusion was removed and final kinematic testing showed range of motion from 0 to 130 degrees with excellent stability, both medially and laterally and appropriate alignment of the leg. Patellar tracking was excellent. The knee was then thoroughly pulse lavaged with normal saline. The tourniquet was deflated and hemostasis was obtained with electrocautery and IV tranexamic acid, 1 g given prior to inflation of the tourniquet and another gram given at the time of closure. Closure was with #2 Ethibond in the fascia and supplemented with #2 Quill, 2-0 Vicryl suture was used for the subcutaneous tissues and 3-0 Quill for the skin. Dermabond/Steri-Strips were then applied. A lightly compressive dressing was applied using Webril and an Chris wrap. [facility] and taken to the recovery room in stable condition. Sponge and needle counts were correct.
== END 2017-07-12 18:39 | disposition home health service (06) | DRG 470 ==
LOC: 2ORMAIN 08:29 → 3SUR 13:02
PROVIDERS: ADMIT Orthopaedic Surgery; ATTEND Orthopaedic Surgery
PROC: 0SRD0J9 Replacement of Left Knee Joint with Synthetic Substitute, Cemented, Open Approach (ICD-10-PCS; principal; 2017-07-11 10:05)
DX: M17.12 Unilateral primary osteoarthritis, left knee (principal); K21.9 Gastro-esophageal reflux disease without esophagitis; Z88.5 Allergy status to narcotic agent; Z79.899 Other long term (current) drug therapy; Z96.651 Presence of right artificial knee joint; Z79.01 Long term (current) use of anticoagulants; M21.162 Varus deformity, not elsewhere classified, left knee
CPT/HCPCS: 80053; 85025; 85610; 88300

== ENCOUNTER → 2017-12-06 | Outpatient (CLI) | payer BC ==
--- NOTE | 2017-12-07 09:33 | MM ---
Reason for exam: screening (asymptomatic). Last mammogram was performed 1 year and 2 months ago. History: Family history of breast cancer in paternal grandmother and breast cancer in maternal aunt. Benign excisional biopsy of the left breast, 2001. Physical Findings: A clinical breast exam by your physician is recommended on an annual basis and results should be correlated with mammographic findings. MG Screening Mammo w CAD Bilateral CC and MLO view(s) were taken. Prior study comparison: October 13, 2016, bilateral MG 3d screening mammo w/cad. September 24, 2015, bilateral MG 3d screening mammo w/cad. There are scattered fibroglandular densities. Post surgical changes left upper quadrant. No significant changes when compared with prior studies. ASSESSMENT: Benign, BI-RAD 2 RECOMMENDATION: Routine screening mammogram of both breasts in 1 year.
== END | disposition home or self-care (01) ==
LOC: RADMAMWWP 07:14
PROVIDERS: ATTEND Family Medicine
DX: Z12.31 Encounter for screening mammogram for malignant neoplasm of breast (principal)
CPT/HCPCS: 77067

== ENCOUNTER → 2018-03-13 | Outpatient (CLI) | payer BC ==
--- NOTE | 2018-03-13 13:15 | US ---
EXAMINATION TYPE: US venous doppler duplex LE RT DATE OF EXAM: 03/13/2018 1:08 PM COMPARISON: NONE CLINICAL HISTORY: 52-year-old female M25.561 Right calf pain, I80.9 phlebitis. SIDE PERFORMED: Right TECHNIQUE: The lower extremity deep venous system is examined utilizing real time linear array sonog pamela with graded compression, doppler sonography and color-flow sonography. FINDINGS: VESSELS IMAGED: External Iliac Vein (EIV) Common Femoral Vein Deep Femoral Vein Greater Saphenous Vein * Femoral Vein Popliteal Vein Small Saphenous Vein * Proximal Calf Veins Posterior tibial veins (* superficial vessels) Right Leg: Negative for DVT IMPRESSION: No evidence for DVT within the right lower extremity.
== END | disposition home or self-care (01) ==
LOC: RADUSWWP 12:42
PROVIDERS: ATTEND Orthopaedic Surgery
DX: M25.561 Pain in right knee (principal); I80.9 Phlebitis and thrombophlebitis of unspecified site; Z96.651 Presence of right artificial knee joint

== ENCOUNTER → 2019-08-01 | Outpatient (CLI) | payer BC ==
--- NOTE | 2019-08-02 02:30 | MR ---
EXAMINATION TYPE: MR lumbar spine wo con DATE OF EXAM: 08/01/2019 COMPARISON: None HISTORY: Radiculopathy TECHNIQUE: Multiplanar, multisequence images of the lumbar spine were acquired. Lumbar vertebra have normal alignment. Disc spaces are fairly normal. There is slight decreased signa l in the disks from L3 to S1. Lumbar nerve roots appear normal. The neural foramina appear widely pat ent. Posterior elements are intact. There is no lumbar paraspinal mass. There is no compression fract ure. There is no evidence of lumbar disc herniation. IMPRESSION: Mild degenerative disc signal changes. No fracture. No lumbar disc herniation. No spinal stenosis. Mi nimal lateral recess stenosis due to facet arthropathy at L4-5.
== END ==
LOC: RADMRIMAIN 18:22
PROVIDERS: ATTEND Family Medicine
DX: M48.061 Spinal stenosis, lumbar region without neurogenic claudication (principal); M51.16 Intervertebral disc disorders with radiculopathy, lumbar region; M46.96 Unspecified inflammatory spondylopathy, lumbar region
CPT/HCPCS: 72148

== ENCOUNTER → 2019-09-17 | Outpatient (CLI) | payer BC ==
--- NOTE | 2019-09-17 21:00 | MR ---
EXAMINATION TYPE: MR brain wo con DATE OF EXAM: 09/17/2019 COMPARISON: None HISTORY: Rt leg numbness CONTRAST: Performed utilizing 0 mL intravenous Gadavist gadolinium contrast. TECHNIQUE: Multiplanar, multiecho imaging on a 3.0 Eileen magnet is performed through the brain. Stud y is performed within 24 hours of arrival to the hospital. The craniovertebral junction is normal. The pituitary is normal. Diffusion-weighted imaging is performed. No abnormal hyperintensity is present to suggest an acute i ntracranial infarct or acute ischemic change. Periventricular and subcortical centrum semiovale white matter changes are present bilaterally. A lar jack area is within the left frontal lobe measuring 4 mm in size. Additional punctate areas are presen t. Findings are nonspecific. Differential diagnosis could include microvascular ischemic change. Migr juan pablo headaches and vasculitis should be considered. Multiple sclerosis is not excluded. Ventricles and sulci are appropriate for the patient age. IMPRESSIONS: 1. Nonspecific scattered periventricular and subcortical white matter changes through the centrum boubacar iovale. Microvascular ischemic change is most likely within the differential.
== END | disposition home or self-care (01) ==
LOC: RADMRIMAIN 17:58
PROVIDERS: ATTEND Family Medicine
DX: R90.89 Other abnormal findings on diagnostic imaging of central nervous system (principal)
CPT/HCPCS: 70551

== ENCOUNTER → 2019-09-26 | Outpatient (CLI) | payer BC ==
--- NOTE | 2019-09-26 17:06 | MR ---
EXAMINATION TYPE: MR angio head wo con DATE OF EXAM: 09/26/2019 2:03 PM COMPARISON: NONE HISTORY: Abnormal findings on diagnostic imaging Three-dimensional [id number] intracranial MRA was performed with multiple intensity projection im ages submitted and source data reviewed at the workstation. The vertebrobasilar system as well as intracranial portions of the internal carotid arteries and thei r major tributaries are patent. I do not see evidence for sizable aneurysm or vascular malformation. IMPRESSION: Normal study.
== END ==
LOC: RADMRIMAIN 13:23
PROVIDERS: ATTEND Family Medicine
DX: R93.89 Abnormal findings on diagnostic imaging of other specified body structures (principal); Z88.5 Allergy status to narcotic agent
CPT/HCPCS: 70544

== ENCOUNTER → 2019-10-04 | Outpatient (CLI) | payer BC ==
--- NOTE | 2019-10-04 15:22 | US ---
EXAMINATION TYPE: US carotid duplex BILAT DATE OF EXAM: 10/04/2019 COMPARISON: NONE CLINICAL HISTORY: R09.89 CAROTID BRUIT. Bruit EXAM MEASUREMENTS: RIGHT: Peak Systolic Velocity (PSV) cm/sec ----- Right CCA: 75.3 ----- Right ICA: 111.2 ----- Right ECA: 108.8 ICA/CCA ratio: 1.5 RIGHT: End Diastole cm/sec ----- Right CCA: 25.8 ----- Right ICA: 45.9 ----- Right ECA: 17.3 LEFT: Peak Systolic Velocity (PSV) cm/sec ----- Left CCA: 101.7 ----- Left ICA: 91.0 ----- Left ECA: 77.7 ICA/CCA ratio: 0.9 LEFT: End Diastole cm/sec ----- Left CCA: 26.9 ----- Left ICA: 38.7 ----- Left ECA: 17.2 VERTEBRALS (direction of flow): Right Vertebral: Antegrade Left Vertebral: Antegrade Rhythm: Normal Bilateral intimal thickening, no elevated velocities, no significant stenosis. IMPRESSION: No evidence for hemodynamically significant stenosis. Criteria for Assigning % of Stenosis / Diameter reduction (Estimation based on the indirect measurements of the internal carotid artery velocities (ICA PSV). 1. Normal (no stenosis)=ICA PSV < 125 cm/s: ratio < 2.0: ICA EDV<40 cm/s. 2. Less than 50% stenosis=ICA PSV < 125 cm/s: ratio < 2.0: ICA EDV<40 cm/s. 3. 50 to 69% stenosis=ICA PSV of 125 to 230 cm/s: ration 2.0 ? 4.0: ICA EDV 40-100 cm/s. 4. Greater than 70% stenosis to near occlusion= ICA PSV > 230 cm/s: ratio > 4.0: ICA EDV > 100 cm/s. 5. Near occlusion= ICA PSV velocities may be low or undetectable: variable ratio and ICA EDV. 6. Total occlusion=unable to detect flow.
== END ==
LOC: RADUSWWP 14:50
PROVIDERS: ATTEND Family Medicine
DX: R93.89 Abnormal findings on diagnostic imaging of other specified body structures (principal)
CPT/HCPCS: 93880

== ENCOUNTER → 2019-10-29 | Outpatient (CLI) | payer BC ==
[2019-10-29 21:11] LABS: Total Protein,CSF 36 mg/dL (12-60)
[2019-10-29 21:25] LABS: Appearance,CSF Clear; CSF Tube Number 4; CSF Tube Volume 3; Nucleated Cells, CSF 2 u/L (0-5); Red Blood Cell,CSF 1 u/L (0-10)
== END ==
LOC: LABWHC1 07:30
PROVIDERS: ATTEND Physician Assistant
DX: H53.8 Other visual disturbances (principal); R20.0 Anesthesia of skin; R90.82 White matter disease, unspecified
CPT/HCPCS: 36415; 82040; 82042; 82784; 83873; 83916; 84157; 87801; 89050

== ENCOUNTER → 2020-03-13 | Outpatient (CLI) | payer BC ==
--- NOTE | 2020-03-13 13:56 | XR ---
Left shoulder HISTORY: Pain 3 views of the left shoulder Bone mineralization, joint spaces and alignment are maintained. Left lung apex as visualized is prashanth l. No fracture or dislocation. Some mild spurring present at the acromioclavicular joint, distal acro mial spur suspected. IMPRESSION: Correlate for impingement, shoulder MRI may be of benefit.
== END | disposition home or self-care (01) ==
LOC: RADXRMAIN 12:45
PROVIDERS: ATTEND Family Medicine
DX: M25.512 Pain in left shoulder (principal)

== ENCOUNTER → 2020-10-09 | Outpatient (CLI) | payer BC ==
--- NOTE | 2020-10-10 10:50 | MM ---
Reason for exam: screening (asymptomatic). Last mammogram was performed 1 year and 5 months ago. History: Family history of breast cancer in paternal grandmother and breast cancer in maternal aunt. Benign excisional biopsy of the left breast, 2001. Physical Findings: A clinical breast exam by your physician is recommended on an annual basis and results should be correlated with mammographic findings. MG 3D Screening Mammo W/Cad Bilateral CC and MLO view(s) were taken. Prior study comparison: April 24, 2019, bilateral MG 3d screening mammo w/cad. December 06, 2017, bilateral MG screening mammo w CAD. There are scattered fibroglandular densities. There is no discrete abnormality. No significant changes when compared with prior studies. ASSESSMENT: Negative, BI-RAD 1 RECOMMENDATION: Routine screening mammogram of both breasts in 1 year.
== END ==
LOC: RADMAMWWP 12:35
PROVIDERS: ATTEND Family Medicine
DX: Z12.31 Encounter for screening mammogram for malignant neoplasm of breast (principal)
CPT/HCPCS: 77063; 77067

== ENCOUNTER → 2020-11-05 | Outpatient (CLI) | payer BC ==
--- NOTE | 2020-11-06 11:28 | MR ---
EXAMINATION TYPE: MR hand LT wo/w con DATE OF EXAM: 11/05/2020 COMPARISON: No radiographic correlation HISTORY: 55-year-old female R22.32, Left hand pain, swelling, and mass with marker. Technique: Multiplanar, multisequence images of the left hand were obtained before and after administ ration of 12 mL intravenous Gadavist gadolinium contrast. FINDINGS: There is capsular and synovial thickening along the dorsal aspect of the third MCP joint measuring up to 4 mm thick (postcontrast sagittal image 13). There is an overlying palpable marker present. No ma rginal erosions are identified. Some capsular edema extends around radially to the volar aspect of the third MCP joint (STIR coronal image 15 and 17). Possible minimal edema at the radial base of the first proximal phalanx, STIR jovita nal image 13. Adjacent mild enhancement and tenosynovial thickening along the third flexor tendon at this level (ST IR coronal image 18 and sagittal postcontrast image 14). The mild diffuse synovial fluid is present a long the third flexor tendon sheath just proximal to the level of the MCP joint, axial T2 image 25. No suspicious bone marrow replacement. There is a 7 mm corticated ossicle at the ulnar styloid process that could be congenital or could ref lect sequela of old chronic ununited fracture fragment. IMPRESSION: Palpable marker along the dorsal aspect of the third MCP joint. There is underlying capsular and syno vial thickening here extending around the radial aspect of the joint to the palmar aspect where there is mild tenosynovitis of the third flexor tendon. There may be some corresponding mild osseous edema at the radial base of the third proximal phalanx in this region. Consider a nonspecific synovitis/te nosynovitis or sequela of a capsular sprain. No suspicious mass or erosive change is identified.
== END | disposition home or self-care (01) ==
LOC: RADMRIMAIN 19:54
PROVIDERS: ATTEND Orthopaedic Surgery
DX: M65.842 Other synovitis and tenosynovitis, left hand (principal)
CPT/HCPCS: 73220; A9585

== ENCOUNTER 2020-11-21 07:58 | Day surgery (SDC) | payer BC ==
[2020-11-19 10:34] VITALS: BMI 42.7
--- NOTE | 2020-11-20 09:23 | HP ---
HISTORY AND PHYSICAL CHIEF COMPLAINT: Left shoulder pain. 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 She is having pain with overhead use and at night. She rates her pain at 7/10 intermittently. She has tried therapy in addition to previous injection and tried medications without much relief. PAST MEDICAL HISTORY: Significant for hypertension and arthritis along with eye disease. PAST SURGICAL HISTORY: Significant for appendectomy, tubal ligation, bilateral carpal tunnel release, colonoscopy, right hand surgery, bilateral total knee arthroplasty and hysterectomy. CURRENT MEDICATIONS: 1. Lexapro. 2. Omeprazole. 3. Hydrochlorothiazide. ALLERGIES: She has allergies to MORPHINE. FAMILY HISTORY: Significant for heart disease and cancer. SOCIAL HISTORY: Negative for current tobacco or alcohol use. REVIEW OF SYSTEMS: Sixteen-point review of systems otherwise is reviewed and is noncontributory. PHYSICAL EXAMINATION: On examination, the patient is approximately 5 feet 6 inches, 265 pounds of endomorphic habitus. HEENT exam is nonfocal. Neck is supple. On examination of the left shoulder, she is tender about the anterior subacromial space. She has moderate subacromial crepitus. Active range of motion forward elevation 160 degrees, external rotation with arm at side 70 degrees, internal rotation to T12. Motor strength is 4+ over 5 for external rotation and abduction. Impingement test, Neer test, and Speed test are positive. Her distal neurovascular exam appears intact in the left upper extremity. MRI report left shoulder shows evidence of a partial-thickness supraspinatus tear along with a superior labral tear. IMPRESSION: 1. Left shoulder impingement with symptomatic rotator cuff tear. 2. Superior labral tear. RECOMMENDATIONS: I talked to the patient at length regarding her condition and treatment options. At this point she is quite symptomatic despite previous conservative measures. After thorough discussion, she opts to proceed with surgery. We will plan to proceed with arthroscopic evaluation of the left shoulder with subacromial decompression, rotator cuff debridement versus repair, possible biceps tenotomy. We will likely perform that as an outpatient procedure. Risks and benefits were discussed at length in layman's terms. MMODL / IJN: [id number] /
[~2020-11-21 07:58] MED LIST changes: -ACETAMINOPHEN TAB 500 MG TAB PO ONE; -DEXAMETHASONE SOD PHOSPHATE 10 MG/ML 1 ML VIAL IV ONE; -HYDROmorphone 1 MG/ML 1 ML SYRINGE IVP PRN; -LACTATED RINGERS 1,000 ML IV SCH; -MELOXICAM 7.5 MG TAB PO ONE; +MIDAZOLAM 2 MG/2 ML VIAL IV PRN; -ONDANSETRON 4 MG/2 ML VIAL IVP ONE; -TRANEXAMIC ACID 1,000 MG in SODIUM CHLORIDE 0.9% 100 ML IVPB ONE; -ceFAZolin 2 GM in SODIUM CHLORIDE 0.9% 100 ML IVPB ONE; +ceFAZolin 3 GM in SODIUM CHLORIDE 0.9% 100 ML IVPB PRN
[2020-11-21 08:42] VITALS: RESP 16
[2020-11-21 08:46] LABS: Glucose,Whole Blood 92 mg/dL (75-99)
[2020-11-21] MEDS ORDERED: ONDANSETRON 4 MG/2 ML VIAL ONE (08:46)
[2020-11-21] MEDS ORDERED: ONDANSETRON 4 MG/2 ML VIAL IVP ONE (09:00)
[2020-11-21] MEDS ORDERED: DEXAMETHASONE SOD PHOSPHATE 4 MG/ML 1 ML VIAL IV ONE (09:00)
[2020-11-21] MEDS ORDERED: LACTATED RINGERS 1,000 ML IV SCH (09:00)
[2020-11-21] MEDS ORDERED: LIDOCAINE 1% (10MG/ML) FOR IV START INTRADERMA ONE (09:04)
[2020-11-21] MEDS ORDERED: SCOPOLAMINE 1.5MG/72HR PATCH TRANSDERM ONE (09:04)
[2020-11-21] MEDS ORDERED: MIDAZOLAM 2 MG/2 ML VIAL IV ONE (09:18)
[2020-11-21] MEDS ORDERED: fentaNYL (PF) 50 MCG/ML 2 ML AMP IVP ONE (09:18)
--- NOTE | 2020-11-21 09:48 | P.ANPRN ---
Procedure Note - Anesthesia - Nerve Block Performed Left Interscalene Single Time Out Performed: Yes (917) Date of Procedure: 11/21/20 Procedure Start Time: :18 Procedure Stop Time: :25 Location of Patient: PreOp Indication: Acute Post-Operative Pain, Requested by Surgeon Specifically requested for management of pain by : Alan Jin Sedation Type: Sedate with meaningful contact maintained Preparation: Sterile Prep Position: Supine Catheter: None Needle Types: Pajunk Needle Gauge: 21 Ultrasound used to visualize needle placement: Yes Ultrasound used to observe medication spread: Yes Injectate: 0.5% Ropivacaine (see comment for volume) (30cc) Blood Aspirated: No Pain Paresthesia on Injection Noted: No Resistance on Injection: Normal Image Stored and Saved: Yes Events: Uneventful and Well Tolerated
[2020-11-21] MEDS ORDERED: LIDOCAINE 1% INJ 10MG/ML (20 ML MDV) ONE (10:15)
[2020-11-21] MEDS ORDERED: ePHEDrine SULFATE/0.9% NACL/PF 50 MG/5 ML SYRINGE IV ONE (10:15)
[2020-11-21] MEDS ORDERED: MIDAZOLAM 2 MG/2 ML VIAL ONE (10:15)
[2020-11-21] MEDS ORDERED: NEOSTIGMINE 1 MG/ML 10 ML VIAL ONE (10:15)
[2020-11-21] MEDS ORDERED: WATER FOR INJECTION, STERILE 10 ML VIAL IV ONE (10:15)
[2020-11-21] MEDS ORDERED: ROPIVACAINE 5 MG/ML 30 ML VIAL ONE (10:15)
[2020-11-21] MEDS ORDERED: SUCCINYLCHOLINE CHLORIDE 100 MG/5 ML SYR IV ONE (10:15)
[2020-11-21] MEDS ORDERED: ROCURONIUM 10 MG/ML (10 ML VIAL) IV ONE (10:15)
[2020-11-21] MEDS ORDERED: GLYCOPYRROLATE 0.2 MG/ML 2 ML VIAL ONE (10:15)
[2020-11-21] MEDS ORDERED: fentaNYL (PF) 50 MCG/ML 2 ML AMP ONE (10:15)
[2020-11-21] MEDS ORDERED: PROPOFOL 10 MG/ML 20 ML VIAL IV ONE (10:15)
[2020-11-21] MEDS ORDERED: LACTATED RINGERS 1,000 ML IV ONE (11:30)
--- NOTE | 2020-11-21 11:30 | P.OP ---
Date of Procedure: 11/21/20 Preoperative Diagnosis: Left shoulder impingement/acromioclavicular joint synovitis/superior labral tear Postoperative Diagnosis: Partial-thickness rotator cuff tear/type II superior labral tear/acromioclavicular joint synovitis Procedure(s) Performed: Left shoulder arthroscopic subacromial decompression/rotator cuff debridement/superior labral debridement with biceps tenotomy/distal clavicular resection Anesthesia: YESSICA, regional Surgeon: Alan Jin Estimated Blood Loss (ml): 10 Pathology: none sent Condition: stable Disposition: PACU Indications for Procedure: The patient's a 55-year-old female presents with progressive left shoulder pain despite conservative measures. A discussion of the risks and benefits of operative intervention versus continued conservative measures was made with patient. She opted to proceed with surgery. Operative risks to include infec tion, neurovascular injury, development of blood clots, possible postoperative stiffness and need for subsequent procedures was discussed. Informed consent was obtained. Operative Findings: As below Description of Procedure: The patient was brought to the operating room, and after induction of general anesthesia was placed in a beachchair position. A preoperative interscalene block was placed for postoperative analgesia. I examined the left shoulder. There was no gross block to passive motion or gross glenohumeral instability. The left upper extremity was prepped and draped in normal fashion. The bony outlines the acromion, distal clavicle, and coracoid process were outlined with a skin marker. The glenohumeral joint was inflated with 50 mL of saline utilizing a spinal needle from posterior approach. A posterior portal was made through a 5 mm skin incision 1 cm medial and inferior to the posterior lateral border time. A blunt trocar was used to easily into the joint. Diagnostic arthroscopy was performed. An anterior portal was made just lateral to the coracoid process entering the joint above the subscapularis tendon. The subscapularis tendon appeared to be intact. Anterior labrum was intact. The inferior recess was inspected. The posterior labrum was intact. A type II superior labral tear was noted with detachment of the superior labrum. This was debrided back to stable base with a motorized shaver. Biceps tenotomy was performed with electrocautery. This was released from the superior labrum and allowed to retract the bicipital groove. On inspection the rotator cuff, a partial thickness tear involving the anterior aspect the supraspinatus was noted on the articular surface. This was debrided back to stable base with a motorized shaver. This involved approximately 20% of the tendon thickness. The posterior portion of the rotator cuff was intact. The arthroscope was placed into the subacromial space. Significant bursal thickening was noted. A lateral portal was made 2 centimeters inferior to the anterior lateral border of the acromion. The soft tissue on the undersurface of the acromion was debrided with a motorized shaver and electrocautery clearly defining the anterior medial and lateral borders as well as the distal clavicle. An anterior inferior acromioplasty was performed with a motorized don starting anterolateral, then extending this posteriorly, then extending this medially. I converted to a flat acromion and this was verified in the posterior and lateral viewing portals. The distal clavicle appeared to impinge on the subacromial space in addition marked synovitis was noted. The distal 4 mm of the clavicle was resected with a motorized bur. The bursal tissue was debrided with a motorized shaver. The rotator cuff appeared to be intact on the bursal surface. The portals were closed with simple 3-0 nylon sutures. A sterile dressing was applied in additi on to a sling. The patient was then awoken from general anesthesia and transferred to recovery room in good condition. Blood loss was estimated at 10 mL. No complications were incurred. Sponge and needle counts were correct in the case.
[2020-11-21 11:43] VITALS: TEMP 97.4
[2020-11-21 12:44] VITALS: BP 126/60; PULSE 84
[2020-11-22] MEDS ORDERED: HYDROmorphone 0.5 MG/0.5 ML SYRINGE IVP PRN (07:00)
[2020-11-22] MEDS ORDERED: fentaNYL (PF) 50 MCG/ML 2 ML AMP IVP PRN (07:00)
== END 2020-11-21 13:07 | disposition home or self-care (01) ==
LOC: OR 07:58
PROVIDERS: ATTEND Orthopaedic Surgery
DX: M75.112 Incomplete rotator cuff tear or rupture of left shoulder, not specified as traumatic (principal); S43.432A Superior glenoid labrum lesion of left shoulder, initial encounter; X58.XXXA Exposure to other specified factors, initial encounter; M65.812 Other synovitis and tenosynovitis, left shoulder; I10 Essential (primary) hypertension; M19.90 Unspecified osteoarthritis, unspecified site; K21.9 Gastro-esophageal reflux disease without esophagitis; E66.01 Morbid (severe) obesity due to excess calories; Z68.42 Body mass index [BMI] 45.0-49.9, adult; Z96.653 Presence of artificial knee joint, bilateral; Z79.899 Other long term (current) drug therapy; Z79.84 Long term (current) use of oral hypoglycemic drugs; Z88.5 Allergy status to narcotic agent; Z91.030 Bee allergy status; Z98.51 Tubal ligation status; Z90.710 Acquired absence of both cervix and uterus; Z90.49 Acquired absence of other specified parts of digestive tract; Z98.890 Other specified postprocedural states; Z87.39 Personal history of other diseases of the musculoskeletal system and connective tissue; Z86.69 Personal history of other diseases of the nervous system and sense organs; Z82.49 Family history of ischemic heart disease and other diseases of the circulatory system; Z80.9 Family history of malignant neoplasm, unspecified
CPT/HCPCS: 64415; 76942; 29823; 29824; J2250; J1100; J2710; J0690; J2405; J2001; J3010; J2795; J0330; J2704

== ENCOUNTER → 2022-05-27 | Outpatient (CLI) | payer BC ==
--- NOTE | 2022-05-27 16:04 | XR ---
Lumbar spine HISTORY: Low back pain, radiculopathy Comparison lumbar MRI 08/01/2019 Lumbar vertebral bodies show preserved height and alignment. There is decreased bone mineralization. Multilevel spondylosis is present. Minimal retrolisthesis grade 1 L5-S1. Loss of disc height is prese nt at L5-S1. Sclerosis in the posterior elements is consistent with facet arthropathy. IMPRESSION: Facet arthropathy, degenerative disc disease, osteopenia. Additional findings above.
== END | disposition home or self-care (01) ==
LOC: RADXRMAIN 15:44
PROVIDERS: ATTEND Family Medicine
DX: M47.26 Other spondylosis with radiculopathy, lumbar region (principal); M51.16 Intervertebral disc disorders with radiculopathy, lumbar region
CPT/HCPCS: 72100

== ENCOUNTER → 2023-01-24 | Outpatient (CLI) | payer BC ==
--- NOTE | 2023-01-25 07:14 | MR ---
EXAMINATION TYPE: MR shoulder RT wo con DATE OF EXAM: 01/24/2023 COMPARISON: Outside right shoulder x-ray January 17, 2023 HISTORY: Right shoulder pain and limited range of motion for 2 months TECHNIQUE: Multiplanar, multisequence imaging of the right shoulder is performed without contrast. FINDINGS: Rotator Cuff: Some increased signal in the distal supraspinatus muscle and tendon with surrounding fl uid. Infraspinatus tendon intact. Rotator cuff muscle bulk preserved. Acromioclavicular Joint: Moderate to severe narrowing and spurring. Caxb-ai-nxngswfc superior capsula r hypertrophy. Loss of underlying fat plane on sagittal image 9 for reference. Glenohumeral Joint: Small to moderate-sized joint effusion. There is moderate narrowing without signi ficant spurring Labrum: Increased signal superior labrum consistent with tearing. Biceps Tendon: The long head of biceps is in normal location within bicipital groove. Bone marrow signal: No focal abnormal marrow signal is appreciated. Other: No additional significant abnormality is appreciated. IMPRESSION: 1. AC joint arthropathy with suggestion of underlying impingement. Correlate clinically. 2. Tendinosis/partial tearing of the supraspinatus. Glenohumeral joint degenerative changes. Superior labral tear.
== END | disposition home or self-care (01) ==
LOC: RADMRIMAIN 16:25
PROVIDERS: ATTEND Orthopaedic Surgery
DX: M19.011 Primary osteoarthritis, right shoulder (principal); M75.111 Incomplete rotator cuff tear or rupture of right shoulder, not specified as traumatic

== ENCOUNTER → 2023-02-02 | Outpatient (CLI) | payer BC ==
[2023-02-02 08:38] LABS: Basophils % (A) 0 %; Eosinophils # (A) 0.2 k/uL (0-0.7); Eosinophils % (A) 3 %; HCT 40.9 % (34.0-46.0); HGB 13.8 gm/dL (11.4-16.0); Lymphocytes # (A) 2.4 k/uL (1.0-4.8); Lymphocytes % (A) 31 %; MCH 29.7 pg (25.0-35.0); MCHC 33.9 g/dL (31.0-37.0); MCV 87.6 fL (80.0-100.0); Mean Platelet Volume 7.9; Monocytes # (A) 0.6 k/uL (0-1.0); Monocytes % (A) 7 %; Neutrophils # (A) 4.4 k/uL (1.3-7.7); Neutrophils % (A) 56 %; Platelet Count 391 k/uL (150-450); RBC 4.66 m/uL (3.80-5.40); RDW 13.7 % (11.5-15.5); WBC 7.9 k/uL (3.8-10.6)
[2023-02-02 15:56] LABS: ALT 18 U/L (8-44); AST 20 U/L (13-35); African American GFR (CKD) 94.5 (60.0-200.0); Albumin 4.1 g/dL (3.8-4.9); Albumin/Globulin Ratio 1.34 (1.60-3.17); Alkaline Phosphatase 81 U/L (41-126); BUN/Creat Ratio 16.39 Ratio (12.00-20.00); Calcium 9.4 mg/dL (8.7-10.3); Carbon Dioxide 27.5 mmol/L (20.0-27.5); Chloride 103 mmol/L (96-109); Chol/HDL Ratio 2.93 Ratio; Globulin 3.1 g/dL (1.6-3.3); Glucose 96 mg/dL (70-110); LDL Cholesterol,Calculated 94.3 mg/dL (0.0-131.0); Non-African American GFR(CKD) 81.6 (60.0-200.0); Potassium 3.7 mmol/L (3.5-5.5); Sodium 140 mmol/L (135-145); Total Protein 7.2 g/dL (6.2-8.2); VLDL Calculation 16.42 mg/dL (5.00-40.00)
== END | disposition home or self-care (01) ==
LOC: LABWHC1 07:03
PROVIDERS: ATTEND Family Medicine
DX: I10 Essential (primary) hypertension (principal); E66.01 Morbid (severe) obesity due to excess calories; Z68.42 Body mass index [BMI] 45.0-49.9, adult
CPT/HCPCS: 36415; 80053; 80061; 83036; 84443; 85025

== ENCOUNTER → 2023-02-15 | Outpatient (CLI) | payer BC ==
--- NOTE | 2023-02-16 07:32 | MM ---
Reason for Exam: Screening (asymptomatic). Last mammogram was performed 2 year(s) and 4 month(s) ago. Patient History: Menarche at age 13. First Full-Term at age 28. Late child-bearing (after 28). Hysterectomy at age 41. 2002, Benign Excisional Biopsy on the left side. Paternal grandmother had breast cancer, age 85. Maternal aunt had breast cancer, age 60. Risk Values: Nubia 5 year model risk: 2.1%. NCI Lifetime model risk: 11.0%. Prior Study Comparison: 12/06/2017 Bilateral Screening Mammogram, [facility]. 04/24/2019 Bilateral Screening Mammogram, [facility]. 10/09/2020 Bilateral Screening Mammogram, [facility]. Tissue Density: The breast tissue is almost entirely fat. Findings: Analyzed By CAD. Left breast surgical clips. There is no suspicious group of microcalcifications or new suspicious mass in either breast. Overall Assessment: Negative, BI-RAD 1 Management: Screening Mammogram of both breasts in 1 year. A clinical breast exam by your physician is recommended on an annual basis and results should be correlated with mammographic findings. [facility] will attempt to contact patient to return for supplemental views and ultrasound if indicated. Electronically signed and approved by: Ajay Wynn DO
== END | disposition home or self-care (01) ==
LOC: RADMAMWWP 06:56
PROVIDERS: ATTEND Family Medicine
DX: Z12.31 Encounter for screening mammogram for malignant neoplasm of breast (principal); Z80.3 Family history of malignant neoplasm of breast; Z98.890 Other specified postprocedural states
CPT/HCPCS: 77063; 77067

== ENCOUNTER → 2023-03-04 | Outpatient (CLI) | payer BC ==
[2023-03-04 15:19] LABS: African American GFR (CKD) 93.5 (60.0-200.0); Anion Gap 10.9 mmol/L (10.00-18.00); BUN/Creat Ratio 22.75 Ratio (12.00-20.00); Blood Urea Nitrogen 18.2 mg/dL (9.0-27.0); Calcium 9.5 mg/dL (8.7-10.3); Carbon Dioxide 29.1 mmol/L (20.0-27.5); Non-African American GFR(CKD) 80.7 (60.0-200.0); Potassium 4.1 mmol/L (3.5-5.5)
[2023-03-04 15:26] LABS: Basophils # (A) 0.07 X 10*3/uL (0.00-0.10); Basophils % (A) 0.9 %; Eosinophils # (A) 0.22 X 10*3/uL (0.04-0.35); Eosinophils % (A) 2.8 %; HCT 40.3 % (37.2-46.3); HGB 12.5 g/dL (12.0-15.0); Immature Grans, Automated 0.1 %; Lymphocytes # (A) 2.93 X 10*3/uL (0.90-5.00); Lymphocytes % (A) 37.9 %; MCH 28.3 pg (27.0-32.0); MCV 91.2 fL (80.0-97.0); Mean Platelet Volume 9.8 fL (9.5-12.2); Monocytes # (A) 0.72 X 10*3/uL (0.20-1.00); Monocytes % (A) 9.3 %; NRBC Per 100 WBC 0 /100 WBCS (0.0-0.0); Neutrophils # (A) 3.78 X 10*3/uL (1.80-7.70); Platelet Count 422 X 10*3/uL (140-440); RBC 4.42 X 10*6/uL (4.10-5.20); RDW 13.5 % (11.5-14.5); WBC 7.73 X 10*3/uL (4.50-10.00)
== END | disposition home or self-care (01) ==
LOC: LABPAT 10:21
PROVIDERS: ATTEND Orthopaedic Surgery
DX: Z01.818 Encounter for other preprocedural examination (principal); M75.41 Impingement syndrome of right shoulder; R94.31 Abnormal electrocardiogram [ECG] [EKG]
CPT/HCPCS: 36415; 80048; 85025; 93005

== ENCOUNTER → 2023-03-15 | Day surgery (SDC) | payer BC ==
[2023-03-09 09:27] VITALS: BMI 40.1
--- NOTE | 2023-03-14 09:53 | P.HPOR ---
History of Present Illness H&P Date: 03/14/23 Chief Complaint: Right shoulder pain The patient is a 57-year-old etugf-ppro-jprtfgwv emelia who presents with progressive right shoulder pain for the past several months. She is having a difficult time with overhead activity and at night. She tried medications along with a steroid pack and home stretching without any relief. She notes daily symptoms that limit her significantly. Review of Systems As per HPI Past Medical History Past Medical History: GERD/Reflux, Hypertension, Osteoarthritis (OA) Additional Past Medical History / Comment(s): HX OF HEMORROIDS, HX OF POLYPS. History of Any Multi-Drug Resistant Organisms: None Reported Past Surgical History: Appendectomy, Section, Cholecystectomy, Hysterectomy, Joint Replacement, Orthopedic Surgery, Tonsillectomy Additional Past Surgical History / Comment(s): Bilateral knee replacements, multiple bilateral knee arthroscopies, bilateral carpal tunnel surgery, Lasik eye surgery, bilateral bunionectomy from baby toes, colonoscopy, EGD. Left shoulder arthroscopy Past Anesthesia/Blood Transfusion Reactions: Motion Sickness Additional Past Anesthesia/Blood Transfusion Reaction / Comment(s): Clausterphobia. Past Psychological History: No Psychological Hx Reported Smoking Status: Never smoker Past Alcohol Use History: Occasional Past Drug Use History: None Reported - Past Family History Mother Family Medical History: Deep Vein Thrombosis (DVT) Brother(s) Family Medical History: Blood Disorder Additional Family Medical History / Comment(s): HEMOPHILIA-3 OF 4 BROTHERS. Medications and Allergies Home Medications Medication Instructions Recorded Confirmed Type Omeprazole 20 mg PO QAM 09/08/16 03/09/23 History EPINEPHrine (Auto Inject) [Epipen] 0.3 mg IM ONCE PRN #2 syringe 04/28/17 03/09/23 Rx Liraglutide [Saxenda] 3 mg SQ DAILY 11/19/20 03/09/23 History Sennosides-Docusate Sodium 1 tab PO DAILY 11/19/20 03/09/23 History [Senokot-S] hydroCHLOROthiazide [Hydrodiuril] 25 mg PO QAM 11/19/20 03/09/23 History Allergy Pill Otc 1 tab PO DAILY 03/09/23 03/09/23 History Ibuprofen [Motrin Ib] 600 mg PO HS 03/09/23 03/09/23 History Olopatadine HCl [Pataday] 1 drop BOTH EYES QAM 03/09/23 03/09/23 History Vitamin B (Unknown Dose) 1 tab PO DAILY 03/09/23 03/09/23 History Vitamin D (Unknown Dose) 1 tab PO DAILY 03/09/23 03/09/23 History Allergies Allergy/AdvReac Type Severity Reaction Status Date / Time bee venom protein (honey bee) Allergy Anaphylaxis Verified 03/09/23 09:10 morphine AdvReac Nausea & Verified 03/09/23 09:10 Vomiting Physical Examination - Shoulder right Appearance: normal Tenderness with palpation: anterior Pain: with abduction, with forward flexion ROM: abduction: 140 degrees ROM: internal rotation: lower lumbar ROM: external rotation: 70 degrees Crepitus with motion: Yes Strength: abduction: 5/5 Strength: forward flexion: 5/5 Strength: external rotation: 5/5 Tests: internal impingement tests: positive, external impingment tests: positive Results The patient is a well-developed well-nourished female approximately 5 foot 6, 248 pounds of endomorphic habitus. HEENT exam is nonfocal, neck is supple. She's tender about the right shoulder anterior subacromial space. Connell, Neer, and speed tests are positive. Her distal neurovascular appears intact the right upper extremity. - Diagnostic results Shoulder MRI: image reviewed (MRI of the right shoulder is reviewed and shows evidence of a superior labral tear along with fraying of supraspinatus.) Assessment and Plan Assessment: Right shoulder impingement/partial thickness rotator cuff tear Superior labral tear right shoulder Plan: I talked with the patient length regarding her condition along with treatment options. At this point she remained symptomatic despite conservative measures. After thorough discussion she opted to proceed with surgery. We'll plan to proceed with right shoulder arthroscopy with probable subacromial decompression, possible biceps tenotomy versus tenodesis along with possible rotator cuff debridement. Risks and benefits were discussed at length in layman's terms. We will likely perform that as an outpatient procedure.
[~2023-03-15] MED LIST changes: +DEXAMETHASONE SOD PHOSPHATE 4 MG/ML 1 ML VIAL IV ONE; +DEXAMETHASONE SOD PHOSPHATE 4 MG/ML 1 ML VIAL ONE; +EPINEPHrine (PF) 1 ML in SODIUM CHLORIDE 0.9% IRRIGATIO 3,000 ML IRRIGATION ONE; +HYDROmorphone 0.5 MG/0.5 ML SYRINGE IVP PRN; +LACTATED RINGERS 1,000 ML IV ONE; +LACTATED RINGERS 1,000 ML IV SCH; +LIDOCAINE 1% (10MG/ML) FOR IV START INTRADERMA PRN; +LIDOCAINE 2% INJ 20 MG/ML (2 ML VIAL) ONE; +MIDAZOLAM 2 MG/2 ML VIAL IV ONE; +MIDAZOLAM 2 MG/2 ML VIAL ONE; +ONDANSETRON 4 MG/2 ML VIAL IVP ONE; +PROPOFOL 10 MG/ML 20 ML VIAL IV ONE; +ROCURONIUM 10 MG/ML (5 ML VIAL) IV ONE; +ROPIVACAINE 5 MG/ML 30 ML VIAL ONE; +SUCCINYLCHOLINE CHLORIDE 200 MG/10 ML VIAL IV ONE; -ceFAZolin 3 GM in SODIUM CHLORIDE 0.9% 100 ML IVPB PRN; +fentaNYL (PF) 50 MCG/1 ML VIAL IV ONE; +fentaNYL (PF) 50 MCG/ML 2 ML AMP ONE
--- NOTE | 2023-03-15 07:28 | P.ANPRN ---
Procedure Note - Anesthesia - Nerve Block Performed Right Interscalene Time Out Performed: Yes (06:50) Date of Procedure: 03/15/23 Procedure Start Time: 06:50 Procedure Stop Time: 06:56 Location of Patient: PreOp Indication: Acute Post-Operative Pain, Requested by Surgeon (Dr Jin) Sedation Type: Sedate with meaningful contact maintained Preparation: Sterile Prep Position: Supine Catheter: None Needle Types: Pajunk Needle Gauge: Other (see comment) (22g) Ultrasound used to visualize needle placement: Yes Ultrasound used to observe medication spread: Yes Injectate: 0.5% Ropivacaine (see comment for volume) (20cc + Decadron 4mg) Blood Aspirated: No Pain Paresthesia on Injection Noted: No Resistance on Injection: Normal Image Stored and Saved: Yes Events: Uneventful and Well Tolerated
--- NOTE | 2023-03-15 09:41 | P.OP ---
Date of Procedure: 03/15/23 Preoperative Diagnosis: Right shoulder impingement/proximal bicipital tendinosis Postoperative Diagnosis: Same in addition to a 3 cm rotator cuff tear, acromioclavicular joint arthritis, high-grade partial-thickness tear intra-articular portion long head of the biceps Procedure(s) Performed: Right shoulder arthroscopic subacromial decompression/distal clavicular resection/biceps tenotomy/rotator cuff repair Implants: Arthrex 4.75 mm swivel lock anchor 3, 5.5 motor swivel lock anchor 1 Anesthesia: YESSICA, regional Surgeon: Alan Jin Geophysics Professor #1: Dennis Merino Estimated Blood Loss (ml): 10 Pathology: none sent Condition: stable Disposition: PACU Indications for Procedure: The patient is a 57-year-old female who presents with progressive right shoulder pain despite conservative measures. A discussion of the risks and benefits of operative intervention versus continued conservative measures made with patient. She opted to proceed with surgery. Operative risks to include infection, neurovascular injury, development of blood clots, possible tendon rerupture, possible postoperative stiffness and need for subsequent procedures was discussed. Informed consent was obtained. Operative Findings: As below Description of Procedure: The patient was brought to the operating room, and after induction of general anesthesia was placed in a beachchair position. A preoperative interscalene block was placed for postoperative analgesia. I examined the right shoulder. There was no gross block to passive motion or gross glenohumeral instability. The right upper extremity was prepped and draped in normal fashion. The bony outlines the acromion, distal clavicle, and coracoid process were outlined with a skin marker. The glenohumeral joint was inflated with 50 mL of saline utilizing a spinal needle from posterior approach. A posterior portal was made through a 5 mm skin incision 1 cm medial and inferior to the posterior lateral border time. A blunt trocar was used to easily into the joint. Diagnostic arthroscopy was performed. An anterior portal was made just lateral to the coracoid process entering the joint above the subscapularis tendon. The subs capularis tendon appeared to be intact. Anterior labrum was intact. The inferior recess was inspected. The posterior labrum was intact. There was a high-grade partial-thickness tear of the long head of the biceps involving interarticular portion. It was elected to proceed with release at this point. This was released from the superior labrum with electrocautery and was allowed to retract to the bicipital groove. On inspection the rotator cuff, a full- thickness tear involving the supraspinatus was noted without significant retraction. A lateral portal was made 2 centimeters inferior to the anterior lateral border of the acromion. The rotator cuff was then mobilized with a traction suture. This was then easily brought back to the greater tuberosity. The soft tissue on the undersurface of the acromion was debrided with a motorized shaver and electrocautery clearly defining the anterior medial and lateral borders as well as the distal clavicle. An anterior inferior acromiopla sty was performed with a motorized don starting anterolateral, then extending this posteriorly, then extending this medially. I converted to a flat acromion and this was verified in the posterior and lateral viewing portals. The distal clavicle was identified in the distal 4 mm was resected along with an inferior spur with a motorized bur. A lateral posterior portal was made through a 5 mm skin incision above the lateral edge of the acromion. This was used as a viewing portal. The greater tuberosity was lightly decorticating with a shaver down to a bleeding bony surface. An accessory superior lateral portal was made just off the lateral edge of the acromion for anchor placement. 2 anchors were then placed just off the articular surface with the appropriate starting awl. 4.75 mm anchors preloaded with #2 fiber tape were placed. Good purchase was obtained. These fiber tapes were then passed the rotator cuff with a scorpion suture passer. A lateral row was created crisscrossing these tapes. One 4.75 mm swivel lock anchor and one 5.5 mm swivel lock anchor was placed laterally. Good purchase was obtained. Final arthroscopic view showed adequate compression at the footprint. The arthroscope was then removed. The portals were closed with simple 3-0 nylon sutures. A sterile dressing was applied in addition to a sling. The patient was then awoken from general anesthesia and transferred to recovery room in good condition. Blood loss was estimated at 10 mL. No complications were incurred. Sponge and needle counts were correct in the case. Dennis MITCHELL assisted and the major components of the case to include arm positioning, anchor placement, and rotator cuff repair.
[2023-03-15 09:48] VITALS: TEMP 97
[2023-03-15 10:53] VITALS: RESP 16
[2023-03-15 11:15] VITALS: BP 128/71; PULSE 93
== END ==
LOC: OR 05:51
PROVIDERS: ATTEND Orthopaedic Surgery
DX: M75.41 Impingement syndrome of right shoulder (principal); M75.101 Unspecified rotator cuff tear or rupture of right shoulder, not specified as traumatic; G89.18 Other acute postprocedural pain; K21.9 Gastro-esophageal reflux disease without esophagitis; I10 Essential (primary) hypertension; M19.90 Unspecified osteoarthritis, unspecified site; Z90.49 Acquired absence of other specified parts of digestive tract; Z98.891 History of uterine scar from previous surgery; Z90.710 Acquired absence of both cervix and uterus; Z96.653 Presence of artificial knee joint, bilateral; Z86.59 Personal history of other mental and behavioral disorders; Z91.030 Bee allergy status; Z88.5 Allergy status to narcotic agent; Z79.899 Other long term (current) drug therapy
CPT/HCPCS: 29826; 29827; 29824; 64415; C1713 ×2; C1894; J2250; J0330; J1100; J0690; J2405; J0171; J3010 ×2; J2795; J2704; J1170; J2001

== ENCOUNTER 2023-08-31 07:08 | Day surgery (SDC) | payer BC ==
[2023-08-26 16:22] VITALS: BMI 39.9
[~2023-08-31 07:08] MED LIST changes: -DEXAMETHASONE SOD PHOSPHATE 4 MG/ML 1 ML VIAL IV ONE; -DEXAMETHASONE SOD PHOSPHATE 4 MG/ML 1 ML VIAL ONE; -EPINEPHrine (PF) 1 ML in SODIUM CHLORIDE 0.9% IRRIGATIO 3,000 ML IRRIGATION ONE; -HYDROmorphone 0.5 MG/0.5 ML SYRINGE IVP PRN; -LACTATED RINGERS 1,000 ML IV ONE; -LIDOCAINE 2% INJ 20 MG/ML (2 ML VIAL) ONE; -MIDAZOLAM 2 MG/2 ML VIAL IV ONE; -MIDAZOLAM 2 MG/2 ML VIAL IV PRN; -MIDAZOLAM 2 MG/2 ML VIAL ONE; -ONDANSETRON 4 MG/2 ML VIAL IVP ONE; -PROPOFOL 10 MG/ML 20 ML VIAL IV ONE; -ROCURONIUM 10 MG/ML (5 ML VIAL) IV ONE; -ROPIVACAINE 5 MG/ML 30 ML VIAL ONE; -SUCCINYLCHOLINE CHLORIDE 200 MG/10 ML VIAL IV ONE; -fentaNYL (PF) 50 MCG/1 ML VIAL IV ONE; -fentaNYL (PF) 50 MCG/ML 2 ML AMP ONE
[2023-08-31 07:25] VITALS: RESP 16; TEMP 97.9
--- NOTE | 2023-08-31 07:45 | P.GSHP ---
History of Present Illness H&P Date: 08/31/23 CHIEF COMPLAINT: Rectal bleeding HISTORY OF PRESENT ILLNESS: The patient is a 57-year-old female who presents for colon screen. Lower endoscopy was offered for further evaluation and management. PAST MEDICAL HISTORY: Please see list. PAST SURGICAL HISTORY: Please see list. MEDICATIONS: Please see list. ALLERGIES: Please see list. SOCIAL HISTORY: No illicit drug use FAMILY HISTORY: No reports of Crohn disease or ulcerative colitis. REVIEW OF ORGAN SYSTEMS: CONSTITUTIONAL: No reports of fevers or chills. PHYSICAL EXAM: VITAL SIGNS: Stable GENERAL: Well-developed pleasant in no acute distress. HEENT: No scleral icterus. Extraocular movements grossly intact. Moist buccal mucosa. NECK: Supple without lymphadenopathy. CHEST: Unlabored respirations. Equal bilateral excursions. CARDIOVASCULAR: Regular rate and rhythm. Distal 2+ pulses. ABDOMEN: Soft, nontender, nondistended. MUSCULOSKELETAL: No clubbing, cyanosis, or edema. ASSESSMENT: 1. Rectal bleeding PLAN: 1. Recommend proceeding with a lower endoscopy Past Medical History Past Medical History: GERD/Reflux, Hypertension, Osteoarthritis (OA) Additional Past Medical History / Comment(s): HX OF HEMORROIDS, HX OF POLYPS History of Any Multi-Drug Resistant Organisms: None Reported Past Surgical History: Appendectomy, Section, Hysterectomy, Orthopedic Surgery, Tonsillectomy Additional Past Surgical History / Comment(s): MULT KNEE SCOPE, CARPAL TUNNEL STEPHANIE, LASIK, bilateral knee replacements 2016. BILAT BUNIONS REMOVED FROM LITTLE TOES. COLONOSCOPY/EGD, Right shoulder february 2023, left shoulder 2020 Past Anesthesia/Blood Transfusion Reactions: Motion Sickness Smoking Status: Never smoker - Past Family History Mother Family Medical History: Deep Vein Thrombosis (DVT) Brother(s) Family Medical History: Blood Disorder Additional Family Medical History / Comment(s): HEMOPHILIA-3 OF 4 BROTHERS. Medications and Allergies Home Medications Medication Instructions Recorded Confirmed Type Omeprazole 20 mg PO QAM 09/08/16 08/26/23 History EPINEPHrine (Auto Inject) [Epipen] 0.3 mg IM ONCE PRN #2 syringe 04/28/17 08/26/23 Rx Sennosides-Docusate Sodium 1 tab PO DAILY 11/19/20 08/26/23 History [Senokot-S] hydroCHLOROthiazide [Hydrodiuril] 25 mg PO QAM 11/19/20 08/26/23 History Allergy Pill Otc 1 tab PO DAILY 03/09/23 08/26/23 History Olopatadine HCl [Pataday] 1 drop BOTH EYES QA 03/09/23 08/26/23 History Vitamin B (Unknown Dose) 1 tab PO DAILY 03/09/23 08/26/23 History Vitamin D (Unknown Dose) 1 tab PO DAILY 03/09/23 08/26/23 History amLODIPine [Norvasc] 5 mg PO DAILY 08/26/23 08/26/23 History Allergies Allergy/AdvReac Type Severity Reaction Status Date / Time bee venom protein (honey bee) Allergy Anaphylaxis Verified 08/31/23 07:20 morphine AdvReac Nausea & Verified 08/31/23 07:20 Vomiting Surgical - Exam Vital Signs Temp Pulse Resp BP Pulse Ox 97.9 F 74 16 143/96 95 08/31/23 07:23 08/31/23 07:23 08/31/23 07:23 08/31/23 07:23 08/31/23 07:23
[2023-08-31] MEDS ORDERED: LIDOCAINE 1% INJ 10MG/ML (20 ML MDV) ONE (08:05)
[2023-08-31] MEDS ORDERED: PROPOFOL 10 MG/ML 20 ML VIAL IV ONE (08:05)
[2023-08-31 09:01] VITALS: BP 135/74; PULSE 67
--- NOTE | 2023-08-31 09:04 | P.PCN ---
Date of Procedure: 08/31/23 Description of Procedure: PREOPERATIVE DIAGNOSIS: Personal history of colon polyps Family history malignant colon polyps Colonoscopy screening POSTOPERATIVE DIAGNOSIS: Tubular adenoma ileocecal valve Sigmoid diverticulosis Internal and external hemorrhoids, grade 3 OPERATION: Colonoscopy to the ileocecal valve and appendiceal orifice, cecum Colonoscopy with cold forceps biopsy SURGEON: Danyell Pandey MD. ANESTHESIA: MAC. INDICATIONS: The patient is an 57-year-old female who presents family history of malignant colon polyps and personal history of colon polyps. Last colonoscopy 5 years. Benefits and risks were described and informed consent was obtained. DESCRIPTION OF PROCEDURE: The patient had undergone Sutab prep. The patient had been brought into the operating room and laid in the left lateral decubitus position. After adequate intravenous sedation, the rectum was examined with 2% lidocaine jelly. The prostate was unremarkable. External hemorrhoids were encountered. The rectal tone was within normal limits. No lesions were palpated in the rectal vault. An Olympus colonoscope was advanced until the cecum, ileocecal valve and appendiceal orifice were clearly viewed. The prep was fair. Sigmoid diverticulosis was encountered. Colonic polyps were found and removed. No evidence of focal colitis was found. Retroflexion of the scope demonstrated grade 3 internal hemorrhoids without active bleeding or inflammation. The colon was desufflated. The patient had tolerated the procedure well. Withdrawal time was over 6 minutes. FINDINGS: Aronchick preparation quality scale 2+ (1-5) Internal hemorrhoids, grade 3 External hemorrhoids, grade 3 No arteriovenous malformations. Sigmoid diverticulosis Removal of 1 polyps: - Cold forceps biopsy at ileocecal valve, 5 mm adenoma. No focal colitis. RECOMMENDATIONS: Repeat colonoscopy in 3 years, 2025 Plan - Discharge Summary Discharge Rx Participant: No New Discharge Prescriptions: Continue Omeprazole 20 mg PO QAM EPINEPHrine (Auto Inject) [Epipen] 0.3 mg IM ONCE PRN #2 syringe PRN Reason: Anaphylaxis hydroCHLOROthiazide [Hydrodiuril] 25 mg PO QAM Sennosides-Docusate Sodium [Senokot-S] 1 tab PO DAILY Vitamin D (Unknown Dose) 1 tab PO DAILY Vitamin B (Unknown Dose) 1 tab PO DAILY amLODIPine [Norvasc] 5 mg PO DAILY Olopatadine HCl [Pataday] 1 drop BOTH EYES QAM Allergy Pill Otc 1 tab PO DAILY Discharge Medication List Omeprazole 20 mg PO QAM 09/08/16 [History] EPINEPHrine (Auto Inject) [Epipen] 0.3 mg IM ONCE PRN #2 syringe 04/28/17 [Rx] Sennosides-Docusate Sodium [Senokot-S] 1 tab PO DAILY 11/19/20 [History] hydroCHLOROthiazide [Hydrodiuril] 25 mg PO QAM 11/19/20 [History] Allergy Pill Otc 1 tab PO DAILY 03/09/23 [History] Olopatadine HCl [Pataday] 1 drop BOTH EYES QAM 03/09/23 [History] Vitamin B (Unknown Dose) 1 tab PO DAILY 03/09/23 [History] Vitamin D (Unknown Dose) 1 tab PO DAILY 03/09/23 [History] amLODIPine [Norvasc] 5 mg PO DAILY 08/26/23 [History] Follow up Appointment(s)/Referral(s): Danyell Pandey MD [STAFF PHYSICIAN] - 09/27/23 11:30 am Patient Instructions/Handouts: Hemorrhoids (DC), Diverticulosis (DC), Diverticulosis Diet (GEN), Colorectal Polyps (GEN) Activity/Diet/Wound Care/Special Instructions: Repeat colonoscopy 3 years, 2025 Discharge Disposition: HOME SELF-CARE
== END 2023-08-31 09:40 | disposition home or self-care (01) ==
LOC: ORWHC2ENDO 07:08
PROVIDERS: ATTEND Surgery Plastic and Reconstructive Surgery
DX: Z12.11 Encounter for screening for malignant neoplasm of colon (principal); D12.0 Benign neoplasm of cecum; K57.30 Diverticulosis of large intestine without perforation or abscess without bleeding; K64.2 Third degree hemorrhoids; K65.2 Spontaneous bacterial peritonitis; K64.4 Residual hemorrhoidal skin tags; I10 Essential (primary) hypertension; E78.5 Hyperlipidemia, unspecified; E07.9 Disorder of thyroid, unspecified; K21.9 Gastro-esophageal reflux disease without esophagitis; M19.90 Unspecified osteoarthritis, unspecified site; E66.01 Morbid (severe) obesity due to excess calories; Z79.01 Long term (current) use of anticoagulants; Z90.710 Acquired absence of both cervix and uterus; Z98.890 Other specified postprocedural states; Z96.653 Presence of artificial knee joint, bilateral; Z90.49 Acquired absence of other specified parts of digestive tract; Z91.030 Bee allergy status; Z68.39 Body mass index [BMI] 39.0-39.9, adult; Z80.0 Family history of malignant neoplasm of digestive organs; Z86.010 Personal history of colon polyps
CPT/HCPCS: 88305; 45380; J2001; J2704

== ENCOUNTER → 2024-01-25 | Outpatient (CLI) | payer BC | END | disposition home or self-care (01) | LOC: LABWHC1 12:16 | PROVIDERS: ATTEND Nurse Practitioner Family | DX: H15.009 Unspecified scleritis, unspecified eye (principal); R31.9 Hematuria, unspecified; M25.50 Pain in unspecified joint | CPT/HCPCS: 36415; 85652; 88108 ==

== ENCOUNTER → 2024-02-17 | Outpatient (CLI) | payer BC ==
--- NOTE | 2024-02-20 09:27 | MM ---
Reason for Exam: Screening (asymptomatic). Last screening mammogram was performed 12 month(s) ago. Patient History: Menarche at age 13. First Full-Term at age 28. Late child-bearing (after 30). Hysterectomy at age 41. 2001, Benign Excisional Biopsy on the left side. Paternal grandmother had breast cancer, age 85. Maternal aunt had breast cancer, age 60. Risk Values: Nubia 5 year model risk: 2.1%. NCI Lifetime model risk: 10.7%. Prior Study Comparison: 04/24/2019 Bilateral Screening Mammogram, [facility]. 10/09/2020 Bilateral Screening Mammogram, [facility]. 02/15/2023 Bilateral MG 3D screening mammo w/cad, [facility]. Tissue Density: There are scattered areas of fibroglandular density. Findings: Analyzed By CAD. Left breast surgical clips. Right breast: There is no suspicious group of microcalcifications or new suspicious mass. Left breast: There is no suspicious group of microcalcifications or new suspicious mass. Overall Assessment: Benign, BI-RAD 2 Management: Screening Mammogram of both breasts in [address] [facility] will attempt to contact patient to return for supplemental views and ultrasound if indicated. Patient should continue monthly self-breast exams. A clinical breast exam by your physician is recommended on an annual basis. This exam should not preclude additional follow-up of suspicious palpable abnormalities. Note on Nubia scores and lifetime risk: 1. A Nubia score greater than 3% is considered moderate risk. If this is the case, consider specialist referral to assess eligibility for a risk reducing agent. 2. If overall lifetime risk for the development of breast cancer is 20% or higher, the patient may qualify for future screening with alternating mammogram and breast MRI. Electronically signed and approved by: Ajay Wynn DO
--- NOTE | 2024-02-23 11:57 | BD ---
EXAMINATION TYPE: Axial Bone Density DATE OF EXAM: 02/17/2024 CLINICAL HISTORY: 58 years old Female. ICD-10 CODE: Z78.0 post menopause M85.88 Height: 64.6 Weight: 233 FRAX RISK QUESTIONS: Glucocorticoids (More than 3mos): yes, for pain and illness (Ex: prednisone, prednisolone, methylprednisolone, dexamethasone, and hydrocortisone). History of Fracture in Adulthood: yes Secondary Osteoporosis: yes 3. Menopause before 45: yes at age 40 total hyst RISK FACTORS HISTORY OF: hx of lt wrist fx x3 times, right foot fx, metatarsal, osteoarthritis, chronic inflammation, MEDICATIONS: bp meds, vit d EXAM MEASUREMENTS: Bone mineral densitometry was performed using the DecaWave System. Bone mineral density as measured about the Lumbar spine is: ----- L1-L4(G/cm2): 1.128 T Score Values are as follows: ----- L1: -1.0 ----- L2: -0.7 ----- L3: -0.6 ----- L4: 0.3 ----- L1-L4: -0.4 Z Score Values are as follows: ----- L1: -1.0 ----- L2: -0.7 ----- L3: -0.6 ----- L4: 0.3 ----- L1-L4: -0.4 Bone mineral density is a baseline study, today. Bone mineral density about the R hip (g/cm2): 1.040 Bone mineral density about the L hip (g/cm2): 1.033 T Score values are as follows: -----R Neck: -0.7 -----L Neck: -0.7 -----R Total: 0.3 -----L Total: 0.2 Z Score values are as follows: -----R Neck: -0.2 -----L Neck: -0.2 -----R Total: 0.4 -----L Total: 0.3 Bone mineral density is her first bone density scan. FRAX%s: The graph provided illustrates a 16.6% chance for a major osteoporotic fx and a 0.8% chance f or the hips probability for fx in 10 years time. IMPRESSION: Osteopenia (T Score between -2.5 and -1). There is slightly increased risk of fracture and the patient may be considered for treatment. Re-Screen 2-5 years. NOTE: T-SCORE=SD OF THE YOUNG ADULT MEAN.
== END | disposition home or self-care (01) ==
LOC: RADMAMWWP 10:47
PROVIDERS: ATTEND Family Medicine
DX: Z12.31 Encounter for screening mammogram for malignant neoplasm of breast (principal); Z78.0 Asymptomatic menopausal state; M85.88 Other specified disorders of bone density and structure, other site; Z80.3 Family history of malignant neoplasm of breast
CPT/HCPCS: 77063; 77067; 77080

== ENCOUNTER → 2025-02-20 | Outpatient (CLI) | payer BC ==
--- NOTE | 2025-02-20 14:39 | MM ---
Reason for Exam: Screening (asymptomatic). Last screening mammogram was performed 12 month(s) ago. Patient History: Menarche at age 13. First Full-Term at age 28. Late child-bearing (after 30). Hysterectomy at age 41. Postmenopausal. 2001, Benign Excisional Biopsy on the left side. Paternal grandmother had breast cancer, age 85. Maternal aunt had breast cancer, age 60. Maternal cousin had breast cancer at or over age 50. Risk Values: Nubia 5 year model risk: 2.2%. NCI Lifetime model risk: 10.4%. Prior Study Comparison: 12/06/2017 Bilateral Screening Mammogram, [facility]. 04/24/2019 Bilateral Screening Mammogram, [facility]. 10/09/2020 Bilateral Screening Mammogram, [facility]. 02/15/2023 Bilateral MG 3D screening mammo w/cad, [facility]. 02/17/2024 Bilateral MG 3D screening mammo w/cad, [facility]. Tissue Density: There are scattered areas of fibroglandular density. Findings: Analyzed By CAD. Surgical clips in the upper outer aspect middle left breast are redemonstrated. Benign-appearing bilateral axillary lymph nodes are seen. There is no suspicious new group of microcalcifications or new suspicious mass in either breast. Overall Assessment: Benign, BI-RAD 2 Management: Screening Mammogram of both breasts in 1 year. . Patient should continue monthly self-breast exams. A clinical breast exam by your physician is recommended on an annual basis. This exam should not preclude additional follow-up of suspicious palpable abnormalities. Note on Nubia scores and lifetime risk: 1. A Nubia score greater than 3% is considered moderate risk. If this is the case, consider specialist referral to assess eligibility for a risk reducing agent. 2. If overall lifetime risk for the development of breast cancer is 20% or higher, the patient may qualify for future screening with alternating mammogram and breast MRI. [facility], , 02/20/2025 2:36 PM. Electronically signed and approved by: Yasir Menchaca M.D.
== END | disposition home or self-care (01) ==
LOC: RADMAMWWP 13:28
PROVIDERS: ATTEND Family Medicine
DX: Z12.31 Encounter for screening mammogram for malignant neoplasm of breast (principal); R92.323 Mammographic fibroglandular density, bilateral breasts; Z78.0 Asymptomatic menopausal state; Z80.3 Family history of malignant neoplasm of breast
CPT/HCPCS: 77063; 77067